=== PATIENT | female | born 1940 | race Caucasian/White ===

== ENCOUNTER → 2016-10-19 | Outpatient (CLI) | payer BC ==
[~2016-10-19] MED LIST: ACET-749 PO; CLTP PO; HYDC25 PO; METO50TA7 PO; NEPA0.6D OPR; OFLO0.3S4 OPL; POTA10CA28 PO; PRED1SUS3 OPR
== END | disposition home or self-care (01) ==
LOC: C.MAMM 10:57
PROVIDERS: ATTEND Obstetrics & Gynecology
DX: M85.80 Other specified disorders of bone density and structure, unspecified site (principal); Z78.0 Asymptomatic menopausal state

== ENCOUNTER → 2016-11-02 | Outpatient (CLI) | payer BC ==
--- NOTE | 2016-11-11 06:11 | CODING QUERY MEDICAL NECESSITY ---
SUPPORTING DIAGNOSIS NEEDED Dr. Faust, A supporting diagnosis is required for the test/procedure performed on this patient in order for us to be reimbursed by the patient's insurance. Please provide a supporting diagnosis for the following test/procedure listed below next to the test name along with your signature. *If there is no additional diagnosis for this patient that would support the following test/procedure please document that below next to the test/procedure. Test(s)/Procedure(s) that require a supporting diagnosis: * ([id number]) VITAMIN D ASSAY DIAGNOSIS: DATE OF SERVICE: 11/02/16 Provider Signature: Date: Thank you Eros Og [facility] Information Management Once completed, please kindly fax back to [phone] For questions please call [phone]
== END | disposition home or self-care (01) ==
LOC: C.LABFOXMH 09:10
PROVIDERS: ATTEND Obstetrics & Gynecology
DX: M85.80 Other specified disorders of bone density and structure, unspecified site (principal)

== ENCOUNTER → 2017-01-26 | Day surgery (SDC) | payer BC ==
[2017-01-17 15:36] VITALS: Ht 165.1 cm; Wt 70.5 kg
[~2017-01-26] VITALS: Ht 165.1 cm; Wt 70.5 kg
[~2017-01-26] MED LIST changes: +ACETAMINOPHEN/CODEINE 300/30MG TAB PO PRN; +ATROPINE SULFATE 0.1 MG/ML 5ML SYR IV PRN; +BUPIVACAINE 0.5 % 5 MG/1 ML PF 10ML VIAL ONE; +CEFAZOLIN 1000MG/55 ML D5W IV SCH; +EpHEDrine SULFATE INJ 50 MG/ML AMP IV PRN; +FENTANYL CITRATE INJ 50 MCG/1 ML 2 ML VIAL IV PRN; +FENTANYL CITRATE INJ 50 MCG/1 ML 2 ML VIAL ONE; +LACTATED RINGER'S 1000ML 1,000 ML IV SCH; +LIDOCAINE HCL 2% LOCAL 20 ML VIAL ONE; +MIDAZOLAM HCL 1 MG/ML 2ML VIAL ONE; -NEPA0.6D OPR; -OFLO0.3S4 OPL; +ONDANSETRON INJ 2 MG/ML 2 ML VIAL ONE; -PRED1SUS3 OPR; +SODIUM CHLORIDE 0.9% 1000ML 1,000 ML IV SCH
--- NOTE | 2017-01-26 10:23 | History & Physical Bridge - SC ---
H&P Re-Evaluation Bridge Note: I have examined the patient, reviewed the History & Physical and in the interval since the performance of the History & Physical I have noted the following changes of clinical significance: No changes noted
[2017-01-26 11:01] VITALS: TEMP 37
--- NOTE | 2017-01-26 11:02 | [facility] Post Operative Brief Note ---
Immediate Operative Summary Operative Date January 26, 2017. Pre-Operative Diagnosis Left Carpal Tunnel Sundrome; Left Index Trigger Finger Post-Operative Diagnosis same Procedure(s) Performed Left Carpal Tunnel Release; Left Index Trigger Finger Release Surgeon Dr. Andres Thomas Weatherization Technician Surgeon(s) Tyler Ugalde PA-C Estimated Blood Loss minimal Findings Left Carpal Tunnel Syndrome Left Index Trigger Finger Specimens none Anesthesia Local with IV Sedation Complication(s) None Disposition Recovery Room / PACU
--- NOTE | 2017-01-26 11:02 | Discharge Instructions-SurgCtr ---
Discharge Instructions Date of Service January 26, 2017. Visit Reason for Visit: Left Carpal Tunnel Syndrome, Left Index Trigger Discharge Discharge Diagnosis / Problem: left carpal tunnel syndrome, index trigger finger Discharge Goals Goal(s): Decrease discomfort, Improve function, Therapeutic intervention Activity Recommendations Activity Limitations: per Instructions/Follow-up section limited use of left hand Anesthesia . Post Anesthesia Instructions: If you have had General Anesthesia or IV Sedation: * Do not drive today. * Resume driving when surgeon permits. * Do not make important decisions or sign legal documents today. * Call surgeon for: 1. Temperature elevations greater than 101 degrees F. 2. Uncontrollable pain. 3. Excessive bleeding. 4. Persistent nausea and vomiting. 5. Medication intolerance (nausea, vomiting or rash). * For nausea and vomiting use only clear liquids such as: tea, soda, bouillon until nausea subsides, then gradually increase diet as tolerated. * If you have any concerns or questions, call your surgeon's office. If physician is unavailable and it is an emergency, call 911 or go to the nearest emergency room. . Instructions / Follow-Up Instructions / Follow-Up MEDICATIONS: * Resume previous medications unless instructed otherwise by your surgeon. * Always take pain medication on a full stomach or with food to avoid upset stomach. * Do not drink alcohol or drive while taking narcotics. * Ibuprofen or Tylenol may be taken if narcotic not needed. SPECIAL CARE INSTRUCTIONS: __ None __ Keep extremity elevated and iced x 48 hours; apply ice 20-30 minutes 8-10 times/day. May remove at night. __ Sling __24 hrs/day __ Remove at night __ Shoulder Immobilizer __ 24 hrs/day __ Remove at night _x_ Dressing _x_ Maintain until seen in office, may shower with plastic over site __ Remove dressings in 24-48 hours and then may shower __ Cover incisions with band-aids after showering __ Do not remove steri-strips Call physician if chills or temperature rises above 102 degrees or pain unrelieved by prescribed pain medications at . follow up in 2 weeks . Diet Recommendations Home Diet: resume previous diet Procedures Procedures Performed: Left Carpal Tunnel Release; Left Index Trigger Finger Release Pending Studies Studies pending at discharge: no Medical Emergencies . Who to Call and When: Medical Emergencies: If at any time you feel your situation is an emergency, please call 911 immediately. . Non-Emergent Contact Non-Emergency issues call your: Surgeon . . "Provider Documentation" section prepared by Huang Ugalde. .
[2017-01-26 11:33] VITALS: BP 130/72; PULSE 61; O2SAT 95
--- NOTE | 2017-01-26 11:47 | Anesthesia Progress Nt - [facility] ---
Anesthesia Post Op Note Date & Time January 26, 2017 at 11:47 Vital Signs Pain Intensity: 0 Vital Signs Past 12 Hours Date Time Temp Pulse Resp B/P Pulse Ox O2 Delivery O2 Flow Rate FiO2 01/26/17 11:33 61 16 130/72 95 Room Air 01/26/17 11:01 37.0 66 16 132/86 94 Room Air 01/26/17 09:27 36.4 70 16 150/85 98 Room Air Notes Mental Status: alert / awake / arousable, participated in evaluation Pt Amnestic to Procedure: Yes Nausea / Vomiting: adequately controlled Pain: adequately controlled Airway Patency, RR, SpO2: stable & adequate BP & HR: stable & adequate Hydration State: stable & adequate Anesthetic Complications: no major complications apparent
--- NOTE | 2017-01-26 16:45 | OPERATIVE REPORT ---
DATE OF OPERATION: 01/26/2017 PREOPERATIVE DIAGNOSES: 1. Left carpal tunnel syndrome. 2. Left index finger trigger finger. POSTOPERATIVE DIAGNOSIS: Same. PROCEDURE PERFORMED: 1. Left carpal tunnel release. 2. Left index finger trigger finger release. SURGEON: Dr. Edwin Thomas. COMPLICATIONS: None. ESTIMATED BLOOD LOSS: Minimal. TOURNIQUET TIME: 8 minutes at 250 mmHg. OPERATIVE INDICATIONS: The patient is a 76-year-old female with a fairly complex past medical history with a pretty significant cervical spine surgery in the past. Over the past several years she has developed numbness and tingling in the median nerve distribution. She had failed conservative treatment and nerve studies revealed carpal tunnel syndrome. She elected to proceed with carpal tunnel release. There are no signs on nerve testing of residual cervical radiculopathy. The patient has also had triggering or locking of her index finger. She did respond temporarily to injection, but her symptoms appeared to be returning and she would like to have a trigger finger release as well. OPERATION AND FINDINGS: OPERATIVE PROCEDURE: The patient taken to the operating room, identified and placed on the operating table in supine position. All contact areas were appropriately padded. IV antibiotics were provided by anesthesia team. A left forearm tourniquet was placed. Some IV sedation was provided. Ten mL of a 50:50 combination of 0.5% Marcaine and 2% lidocaine were then injected in and around the proposed incision sites of the left palm and the left index finger. The left hand was then prepped and draped in the usual sterile fashion. The arm was elevated and exsanguinated with Esmarch and tourniquet was placed at 250 mmHg. Attention was first drawn to the trigger finger. A transverse incision was made at the base of the index finger just proximal to the distal palmar crease. Blunt dissection was carried down through the subcutaneous tissue directly down to the flexor tendon sheath. The A1 jesu was identified and transected with the use of scissors. It was bluntly spread. The finger was taken through an active and active assisted range of motion and there was no further catching or locking. Attention was then drawn to the carpal tunnel release. A 2.5 cm incision was made in the palm just ulnar to the palmaris longus tendon. Blunt dissection was carried out through the subcutaneous tissues down to the level of the palmar fascia. The palmar fascia was incised longitudinally in line with skin incision. The underlying transverse carpal ligament was identified. It was transected distally with use of a Glascock blade knife and then bluntly spread. Attention was then drawn proximally. Blunt dissection was carried out above and below the ligament proximally. The ligament was transected for a minimum distance of 3 cm proximal to the wrist flexion crease. The ligament was bluntly spread and found to be completely released. The wound was irrigated with copious amounts of normal saline. The tourniquet was then let down for a total tourniquet time 8 minutes. I applied pressure to both wounds for several minutes. I then irrigated both wounds and then the skin of both wounds were then closed with 5-0 nylon suture in a horizontal mattress fashion. The hand was then cleaned and dried and a sterile dressing with Xeroform, 4 x 4, sterile cast padding and Lane bandage were applied. The patient then transferred to the recovery room in stable condition. The patient tolerated the procedure well with no complications. All needle and sponge counts were correct at the end of the operation. I attest to the content of the Intraoperative Record and any orders documented therein. Any exceptions are noted below. REESE
== END | disposition home or self-care (01) ==
LOC: X.SURG 09:13
PROVIDERS: ATTEND Orthopaedic Surgery Sports Medicine
DX: G56.02 Carpal tunnel syndrome, left upper limb (principal); M65.322 Trigger finger, left index finger; I10 Essential (primary) hypertension

== ENCOUNTER → 2017-03-23 | Outpatient (CLI) | payer BC ==
[~2017-03-23] MED LIST changes: -ACETAMINOPHEN/CODEINE 300/30MG TAB PO PRN; -ATROPINE SULFATE 0.1 MG/ML 5ML SYR IV PRN; -BUPIVACAINE 0.5 % 5 MG/1 ML PF 10ML VIAL ONE; -CEFAZOLIN 1000MG/55 ML D5W IV SCH; -EpHEDrine SULFATE INJ 50 MG/ML AMP IV PRN; -FENTANYL CITRATE INJ 50 MCG/1 ML 2 ML VIAL IV PRN; -FENTANYL CITRATE INJ 50 MCG/1 ML 2 ML VIAL ONE; -LACTATED RINGER'S 1000ML 1,000 ML IV SCH; -LIDOCAINE HCL 2% LOCAL 20 ML VIAL ONE; -MIDAZOLAM HCL 1 MG/ML 2ML VIAL ONE; -ONDANSETRON INJ 2 MG/ML 2 ML VIAL ONE; -SODIUM CHLORIDE 0.9% 1000ML 1,000 ML IV SCH
[2017-03-23 11:04] LABS: BLOOD UREA NITROGEN 14 mg/dl (7-18); BUN/CREATININE RATIO 16.1 (10-20); CARBON DIOXIDE 31 mmol/L (21-32); CHLORIDE 104 mmol/L (98-107); CREATININE 0.85 mg/dl (0.60-1.20); GLUCOSE 101 mg/dl (70-99); POTASSIUM 3.6 mmol/L (3.5-5.1); SODIUM 141 mmol/L (136-145)
== END | disposition home or self-care (01) ==
LOC: C.LABFOXMH 09:39
PROVIDERS: ATTEND Internal Medicine
DX: I10 Essential (primary) hypertension (principal)

== ENCOUNTER → 2017-03-24 | Outpatient (CLI) | payer BC ==
--- NOTE | 2017-03-24 11:39 | DIAGNOSTIC IMAGING REPORT ---
CHEST 2 VIEWS ROUTINE CLINICAL HISTORY: COUGH dyspnea COMPARISON STUDY: 09/07/2013 FINDINGS: The bones soft tissues and hemidiaphragms are normal. The cardiomediastinal silhouette is normal. The lungs are clear. The pulmonary vasculature is normal. IMPRESSION: Negative chest. Electronically signed by: Royal Tuttle M.D. 03/24/2017 11:38 AM Dictated Date/Time: 03/24/2017 11:38 AM
== END | disposition home or self-care (01) ==
LOC: C.RC 11:06
PROVIDERS: ATTEND Internal Medicine
DX: R05 Cough (principal); R06.00 Dyspnea, unspecified

== ENCOUNTER → 2017-05-09 | Outpatient (CLI) | payer BC ==
--- NOTE | 2017-05-10 06:01 | PAP/PSG TECHNICIAN REPORT ---
[facility] Dowel Machine Operator Polysomnogram Report Study name: None Report date: 05/10/2017 Study date: 05/09/2017 Referring Physician: KADY WHITNEY M.D. Name: NKECHI ESCOBEDO Interpreting Physician: Atif Robert M.D. Date of : 1940 Dowel Machine Operator: Radha Webb RPSGT. Sex: Female Age: 76 Study Type: PSG PAP Weight: 165 lbs Height: 76 years, Height 5' 4.5" BMI: 27.88 Medications: METOPROLOL 50 MG, HYDROCHLOROTHIAZIDE 25 MG, POTASSIUM 10 MEQ, CALCIUM + VIT D3 600/800 MG Patient History 76 yr-old female here for a CPAP update study. She has recently been experiencing more daytime sleepiness. She is back to assess her pressure settings. She wears a Conway FX nasal pillows size small from [employer] ([employer]). The test was started on room air and 4 CMH2O. ETCO2 testing was not utilized during this study. Room 1 Parameters Monitored NPSG: E1-M2, E2-M1, Fp1-M2, Fp2-M1, F3-M2, F4-M2, F4-M1, C3-M2, C4-M2, C4-M1, O1-M2, O2-M2, O2-M1, T3-M2, T4-M1, P3-M2, P4-M1, CHIN1, CHIN2, HR, EKG, Legs, PFLOW, SNOR, FLOW, CFLOW, Tidal Volume, THOR, ABDO, SpO2, PLTH, CPRESS, ETCO2 Wave, ETCO2, pH Sleep Architecture Sleep Stages Time at Lights Off 10:01:00 PM STAGES Time (min.) TST (%) Time at Lights On 5:30:30 AM Wake 46.5 -- Total Recording Time (TRT) 449.50 min. N1 25.5 6 Total Sleep Period (TSP) 444.5 min. N2 248.0 62 Total Sleep Time (TST) 403.0min. N3 37.5 9 Awake Time 46.5 min. REM 92.0 23 Wake after Sleep Onset 42.0 min. Sleep Efficiency (SE) 90 % Sleep Onset Latency (CARLOS MANUEL) 4.5 min. Number of Stage 1 Shifts None Awakenings 15 Stage Changes 88 Number of REM periods 5 REM 92.0 23 REM Latency 77.5 min. NREM 311.0 77 Body Position Analysis Supine Right Left Side Prone Vertical Total Sleep Time (min.) 0.0 403.0 0.0 403.00 0.0 0.0 Total Sleep Time (%) 0% 100% 0% 100 0% N/A% Total Sleep Time REM (min.) 0.0 92.0 0.0 None 0.0 0.0 Total Sleep Time NREM (min.) 0.0 311.0 0.0 None 0.0 0.0 Intermittent Wake (min.) 0.0 46.5 0.0 None 0.0 0.0 Total Sleep Period (%) 0% None None None None None Arousals Myoclonus (PLM) * Events Count Index Events Count Index Spontaneous 17 3 Events Awake (PLMW) 51 65.8 Respiratory 2 0.3 Events Asleep w/ Arousal (PLMA) 22 3.3 PLM 22 3 Events Asleep w/o Arousal (PLMS) 505 75.2 Snoring 2 0 Total Asleep 527 78.5 Total 43 6 Total 578 77 Respiratory Analysis * CA OA MA CH H RERA Total Count 0 0 0 0 4 2 4 Index 0.0 0.0 0.0 0 0.6 0 0.9 Mean Duration 0.0 0.0 0.0 0.00 17.2 17.0 17.1 Longest Duration 0.0 0.0 0.0 0.00 0.0 17.1 24.9 Respiratory Event Summary Total Supine ~Supine Right Left Prone REM NREM Apneas Count 0 N/A 0 0 N/A N/A 0 0 Index 0.0 N/A 0 0.0 N/A N/A 0 0 Hypopneas (4% Desat) Count 4 N/A 4 4 N/A N/A 0 4 Index 0.6 N/A 1 0.6 N/A N/A 0.0 0.8 Apneas & All Hypopneas Count 4 N/A 4 4 N/A N/A 0 4 Index 0.6 N/A 1 1 N/A N/A 0.0 0.8 Respiratory Events (Service Learning Coordinator+All Hyp+RERA) Count 4 N/A 6 6 N/A N/A 0 4 Index 0.9 N/A 1 0.9 N/A N/A 0.7 1.0 Respiratory Related Arousal Count 2 N/A 2 2 N/A N/A 1 1 Index 0.3 N/A 0 0 N/A N/A 1 0 Snoring Analysis Supine Right Left Prone REM NREM Total Snore duration 3.6 min Snores count N/A 127 N/A N/A 15 112 127 Snore mean duration 1.7 Sec Snores index N/A 19 N/A N/A 9.8 21.6 18.9 TST with snoring (%) 0.9% Time (mins) REM (mins) NREM (mins) % of TST SpO2 Below 90% 8 N/A N8 1.1 SpO2 Below 88% 0 0 0 0 Heart Rate Analysis Min (bpm) Max (bpm) Average (bpm) Awake 59 82 66 NREM 57 79 61 REM 57 80 61 Overall 57 80 61 Supplemental O2 Values Minimum O2 level: None Value Start Time End Time Dowel Machine Operator Comments Ms. Escobedo slept only in the right-side position. No cardiac arrhythmias were noted. PLMs were noted throughout the study. No bruxism noted. CPAP was initiated at +4 CMH2O and up-titrated to a level of +5 CMH2O, Cflex 2 which nearly eliminated all respiratory events and snoring. A Conway FX nasal pillows size small from [employer] ([employer]) was used during titration. She did not wake up to use the restroom during the night. Ms. Escobedo stated that she slept about the same as usual. The final report will be interpreted and signed by a sleep physician. The completed physician report will then be placed in the patient medical record.
--- NOTE | 2017-05-11 16:16 | POLYSOMNOGRAPH REPORT ---
CLINICAL DATA: A 76-year-old female with BMI of 27.88 for an updated CPAP study. She is on CPAP but has been having more daytime sleepiness. She is referred by Dr. Marina. SLEEP ARCHITECTURE: Total recording time was 449.5 minutes. Total sleep period was 444.5 minutes. Total sleep time was 403 minutes divided between 311 minutes of non-REM sleep and 92 minutes of REM sleep. Sleep onset latency was 4.5 minutes. REM latency was 77.5 minutes. Sleep efficiency was 90%. Wake after sleep onset was 42 minutes. Sleep consisted of stage N1 6%, stage N2 62%, stage N3 9%, and REM 23%. AROUSAL DATA: Forty-three arousals recorded for an index of 6 per hour. PLM DATA: Severe PLMD was noted. There were 527 limb movements during sleep noted for an index of 78.5 per hour with an arousal index of 3.3 per hour. RESPIRATORY DATA: The AHI was 0.6. There were 4 hypopneic episodes with a mean duration of 17.2 seconds. OXIMETRY DATA: No hypoxemia was seen. The oxygen abraham was 88%. Mean saturation was 92%. EKG: Heart rates ranged from 57 to 80 beats per minute. No arrhythmias were noted. RANCH MANAGER'S COMMENTS AND TREATMENT SUMMARY: The patient slept in the right side. She used a Conway FX nasal pillow size small from [employer]. She was titrated up to 5 cm of water pressure. At that pressure setting, she slept for 135 minutes with an AHI of 0.4. She did have frequent limb movements during the night with arousals consistent with PLMD. IMPRESSION: 1. Sleep apnea corrected with CPAP 5 cm water pressure, C-Flex setting 2 with a Conway FX nasal pillow size small from [employer]. 2. Severe periodic limb movement disorder. RECOMMENDATIONS: The patient should be continued on CPAP 5 cm of water pressure, C-Flex 2 with a Conway FX nasal pillow size small from [employer]. Treatment for an evaluation for PLMD/restless leg syndrome may be of benefit. Clinical correlation is needed. MTDD
== END | disposition home or self-care (01) ==
LOC: C.NEUR 20:00
PROVIDERS: ATTEND Internal Medicine
DX: R53.83 Other fatigue (principal); G47.30 Sleep apnea, unspecified

== ENCOUNTER → 2017-08-26 | Outpatient (CLI) | payer BC ==
[~2017-08-26] MED LIST changes: -ACET-749 PO
[2017-08-26 08:28] LABS: BLOOD UREA NITROGEN 10 mg/dl (7-18); BUN/CREATININE RATIO 12.5 (10-20); CALCIUM 9.4 mg/dl (8.5-10.1); CARBON DIOXIDE 30 mmol/L (21-32); CHLORIDE 103 mmol/L (98-107); CREATININE 0.83 mg/dl (0.60-1.20); GLUCOSE 101 mg/dl (70-99); POTASSIUM 3.9 mmol/L (3.5-5.1); SODIUM 142 mmol/L (136-145)
== END | disposition home or self-care (01) ==
LOC: C.LABFOXMH 08:02
PROVIDERS: ATTEND Internal Medicine
DX: I10 Essential (primary) hypertension (principal)

== ENCOUNTER → 2017-09-28 | Outpatient (CLI) | payer BC ==
[~2017-09-28] MED LIST changes: -METO50TA7 PO; +METO50TA8 PO
--- NOTE | 2017-09-28 11:54 | DIAGNOSTIC IMAGING REPORT ---
MRI CERVICAL WITHOUT CONTRAST CLINICAL HISTORY: Left arm and hand radiculopathy. History of spinal fusion in 2011. TECHNIQUE: Sagittal and axial T1, T2 and STIR images were obtained. COMPARISON STUDY: October 2011 There are no suspicious areas of marrow replacement. No intrinsic cervical cord lesions are visualized. There are postsurgical changes of discectomies and interbody fusions at the C3-4, C4-5, and C5-6 levels. There is an anterior fusion extending from the C3-C6 level. C2-3: There is no evidence of disc bulge or focal herniation. There is no spinal or foraminal stenosis. C3-4: Postsurgical changes are evident. There is no evidence of disc herniation. There is no significant spinal stenosis. There is bilateral foraminal narrowing more severe on the left C4-5: Postsurgical changes are evident. No disc herniation is visualized. There is no significant spinal stenosis. There is mild left-sided foraminal narrowing. C5-6 :Postsurgical changes are evident. There is mild spinal stenosis. There is no recurrent disc herniation. There is bilateral foraminal stenosis. C6-7: There is a minor circumferential disc bulge. There is mild spinal stenosis. There is bilateral foraminal narrowing. C7-T1: There is a small left paracentral disc protrusion. There is no significant spinal or foraminal stenosis. IMPRESSION: 1. Interval surgery with a C3-C6 anterior spinal fusion 2. Multilevel foraminal stenosis, most severe at the C3-4 level on the left 3. Minor spinal stenosis at the C5-6 and C6-7 levels 4. Very small left central paracentral protrusion at the C7-T1 level Electronically signed by: Ervin Chaudhari M.D. 09/28/2017 11:52 AM Dictated Date/Time: 09/28/2017 11:45 AM
== END | disposition home or self-care (01) ==
LOC: C.MRIBC 10:23
PROVIDERS: ATTEND Internal Medicine Hospice and Palliative Medicine
DX: M54.12 Radiculopathy, cervical region (principal)

== ENCOUNTER → 2017-10-10 | Outpatient (CLI) | payer BC ==
[~2017-10-10] MED LIST changes: +METO50TA7 PO; -METO50TA8 PO
[2017-10-10 09:33] LABS: HEMATOCRIT 41.8 % (37-47); HEMOGLOBIN 14.7 g/dL (12.0-16.0); MEAN CELL VOLUME 93.3 fL (80-100); MEAN CORPUSCULAR HEMOGLOBIN 32.8 pg (25-34); MEAN CORPUSCULAR HGB CONC 35.2 g/dl (32-36); MEAN PLATELET VOLUME 11.1 fL (7.4-10.4); PLATELET COUNT 205 K/uL (130-400); RED CELL DISTRIBUTION WIDTH CV 13.2 % (11.5-14.5); RED CELL DISTRIBUTION WIDTH SD 44.9 fL (36.4-46.3); WHITE BLOOD COUNT 6.67 K/uL (4.8-10.8)
[2017-10-10 09:42] LABS: ALBUMIN 3.5 gm/dl (3.4-5.0); ALT/SGPT 34 U/L (12-78); BLOOD UREA NITROGEN 12 mg/dl (7-18); CALCIUM 9.1 mg/dl (8.5-10.1); CARBON DIOXIDE 30 mmol/L (21-32); CREATININE 0.76 mg/dl (0.60-1.20); GLUCOSE 102 mg/dl (70-99); POTASSIUM 3.6 mmol/L (3.5-5.1); SODIUM 139 mmol/L (136-145)
[2017-10-10 09:52] LABS: ALKALINE PHOSPHATASE 94 U/L (45-117); AST/SGOT 25 U/L (15-37); TOTAL PROTEIN 6.6 gm/dl (6.4-8.2)
== END | disposition home or self-care (01) ==
LOC: C.LABFOXMH 08:42
PROVIDERS: ATTEND Internal Medicine
DX: R53.83 Other fatigue (principal)

== ENCOUNTER → 2017-11-08 | Outpatient (CLI) | payer BC ==
[~2017-11-08] MED LIST changes: -METO50TA7 PO; +METO50TA8 PO
--- NOTE | 2017-11-09 15:22 | MAMMOGRAPHY REPORT ---
BILATERAL DIGITAL SCREENING MAMMOGRAM TOMOSYNTHESIS WITH CAD: 11/08/2017 CLINICAL HISTORY: Routine screening. Patient has no complaints. TECHNIQUE: Breast tomosynthesis in addition to standard 2D mammography was performed. Current study was also evaluated with a Computer Aided Detection (CAD) system. COMPARISON: Comparison is made to exams dated: 08/27/2016 mammogram, 08/26/2015 mammogram, 08/20/2014 mammogram, 08/13/2013 mammogram, 07/31/2012 mammogram, and 09/22/2011 aspiration - [facility]. BREAST COMPOSITION: The tissue of both breasts is extremely dense, which lowers the sensitivity of m ammography. FINDINGS: The glandular pattern is similar to prior mammograms, with stable asymmetries bilaterally. There are stable metallic markers in the 12:00 far posterior right breast and numerous/diffuse group ings of punctate and coarse heterogeneous calcifications in the breasts, which appear relatively stab le compared to prior mammograms. There are also mild to moderate vascular calcifications in the branden sts. No obvious new mass, architectural distortion or cluster of new, suspicious microcalcifications is seen. IMPRESSION: ACR BI-RADS CATEGORY 1: NEGATIVE There is no mammographic evidence of malignancy. A 1 year screening mammogram is recommended. The pa tient will receive written notification of the results. Approximately 10% of breast cancers are not detected with mammography. A negative mammographic report should not delay biopsy if a clinically suggestive mass is present. Rula Vasquez M.D. ay/:11/08/2017 16:26:50 Deicer Inspector Pneumatic: Catrina Paris, [facility] letter sent: Normal 1/2 BI-RADS Code: ACR BI-RADS Category 1: Negative
== END | disposition home or self-care (01) ==
LOC: C.MAMM 07:23
PROVIDERS: ATTEND Obstetrics & Gynecology
DX: Z12.31 Encounter for screening mammogram for malignant neoplasm of breast (principal)

== ENCOUNTER 2024-01-03 13:12 | Observation (INO) ==
--- NOTE | 2024-01-03 13:25 | ED Triage Note ---
Date of Service January 03, 2024 Provider in Triage Author: Conrad Cole History of Present Illness This patient was briefly evaluated while in triage. An abbreviated physical exam was performed. This patient is a 83-year-old Female who presents to the ED for evaluation of new onset atrial fibrillation, and was referred to the emergency department by Dr. Marina. The patient noticed an increased heart rate yesterday. The patient denies any other significant symptoms, including chest pain, shortness of breath or lightheadedness. The patient reports that she was slightly lightheaded when she got off of the examination table at Dr. Marina's office. The patient does report a history of hypertension. Physical Exam CONSTITUTIONAL: Healthy and well nourished. Alert and oriented X 3. HEENT: Normocephalic, atraumatic. Pupils equal, round and reactive. NECK: Full active range of motion without discomfort. LYMPHATICS: No cervical chain adenopathy. RESPIRATORY: Clear to auscultation bilaterally with no wheezing, crackles, rhonchi or stridor. CARDIOVASCULAR: Tachycardic and irregular rhythm with no murmurs, rubs or gallops. MUSCULOSKELETAL: Full range of motion of all joints without discomfort. INTEGUMENTARY: No rash or other significant dermatologic conditions noted. HEMATOLOGIC: No ecchymosis or petechiae. PSYCHIATRIC: Positive affect. NEUROLOGIC: No focal neurologic deficits noted. Initial orders for labs and / or imaging were placed and patient was placed in the waiting area until a bed is available. Please see further documentation for the full ED course.
[2024-01-03] MEDS: METOPROLOL TARTRATE 1 MG/ML VIAL IV STA ×3 (14:11→16:00)
--- NOTE | 2024-01-03 14:13 | Emergency Department Note ---
Impression & Plan Atrial fibrillation with RVR, Cardiomegaly ED Provider Note NAME: NKECHI WATT AGE: 83 SEX: F : 1940 ARRIVES VIA: Walk-In INFORMANT: Patient, ED PROVIDER(S): Stephon Hernandez MD CHIEF COMPLAINT: Tachycardia HPI: This is an 83-year-old female presenting for tachycardia. Patient states that she started on new blood pressure medication recently, amlodipine, and has been tracking her blood pressures regularly. She notes that her blood pressure has been fairly normal however over the past 1 to 2 days her pulse rate was not able to be detected in her blood pressure monitor. She notes she takes no blood thinners. Does not know exactly when her heart rate started going fast. She feels no palpitations, chest pain, shortness of breath, fever, chills, nausea, vomiting, fatigue. Patient does note she feels "off ". She has otherwise she never had any abnormal heart rhythms. Previously. ROS: See above HPI for pertinent positives & negatives. A total of 10 systems reviewed and were otherwise negative. PHYSICAL EXAMINATION: General: resting comfortably in no acute distress Head: Normocephalic and atraumatic Eyes: Normal inspection, extraocular muscles intact Ear, nose, throat: Normal external exam Neck: Normal range of motion Respiratory: lungs clear to auscultation bilaterally Cardiovascular: Irregularly irregular rate/rhythm, no murmur GI: soft, nontender, no guarding or rebound Extremities: nontender, moves all extremities Neuro: The patient awake and alert, appropriately conversive, no focal deficits, symmetric faces Skin: Warm, dry, and intact MEDICAL DECISION MAKING: This is an 83-year-old female presenting for tachycardia. Patient has a fairly normal blood pressure 120s over 90s. She is in atrial fibrillation rhythm. -Patient on metoprolol 50 XL daily as well as her blood pressure medications. Will give her metoprolol at this time in order to help rate control her. -Patient given 3X 5 mg doses of metoprolol in total. She is still in A-fib with RVR. Currently rate controlled. Not hypotensive likely. At this point patient has had new onset A-fib, is anticoagulated and will require admission for further rate controlling methods as well as anticoagulation. Patient is comfortable with this plan. -Labs reviewed without significant abnormalities aside from a slight hypokalemia which we will replete at this time. No UTI noted on urinalysis. -Chest x-ray as independently interpreted by me does reveal cardiomegaly with slight pulmonary vascular congestion, no pleural effusions, opacities or pneumothorax are noted. -Discussed care with manage the hospitalist team who excepts the patient to their service. Differential diagnosis: A-fib, ACS ER treatment provided: See below Diagnostics interpreted by me: ECG: ECG independently interpreted by me with atrial fibrillation with RVR, rate of 150, normal axis, normal QRS, normal QTc, no ST segment elevations consistent with STEMI criteria, slight ST depressions on lateral leads Cardiac Monitoring: An order was placed for continuous cardiac monitoring. The monitor shows a rate of 135 with atrial fibrillation rhythm. Laboratory studies: As stated above and show below. Imaging studies: See below. Past Med/Surg History Medical History Left trigger finger Left carpal tunnel syndrome Effusion, left knee Left knee DJD Surgical History History of rectal polypectomy Status post trigger finger release History of neck surgery History of colonoscopy History of section History of cataract surgery History of carpal tunnel surgery Family History Aunt Breast cancer Mother Colorectal cancer Hypertension Denies family history of Ovarian cancer Stroke Asthma Social History Smoking Status: Never smoker Hx Alcohol Use: Yes Hx Substance Use: No Preferred Language: Andorran marital status: current occupational status: retired Feels Safe at Home: Yes Childhood Exposure to Second-Hand Smoke: No Allergies Allergies Allergy/AdvReac Type Severity Reaction Status Date / Time latex Allergy Unknown LATEX Verified 09/14/23 15:54 BANDAGES - RASH/REDDENED. bacitracin Allergy Verified 09/14/23 15:54 [From Neosporin ([id number])] neomycin Allergy Verified 09/14/23 15:54 [From Neosporin ([id number])] polymyxin B Allergy Verified 09/14/23 15:54 [From Neosporin ([id number])] Home Meds Home Medications Medication Instructions Recorded Confirmed mecobalamin (vitamin B12) 1,000 1,000 mcg sublingual DAILY 05/10/19 01/03/24 mcg disintegrating tablet,sublingual amlodipine 5 mg tablet 5 mg PO DAILY 01/03/24 01/03/24 candesartan 16 mg tablet 16 mg PO DAILY 01/03/24 01/03/24 cholecalciferol (vitamin D3) 50 50 mcg PO DAILY 01/03/24 01/03/24 mcg (2,000 unit) tablet (Vitamin D3) hydrochlorothiazide 25 mg tablet 25 mg PO DAILY 01/03/24 01/03/24 metoprolol succinate 50 mg 50 mg PO DAILY 01/03/24 01/03/24 tablet,extended release 24 hr potassium chloride 10 mEq 20 meq PO DAILY 01/03/24 01/03/24 tablet,extended release vit C 250 mg-vit E 90 mg-zinc 40 1 tab PO BID 01/03/24 01/03/24 mg-copper 1 [id number] capsule (PreserVision AREDS-2) Results & Data (ED) Vital Signs Vital Signs - 24 hr 01/03/24 13:13 01/03/24 13:13 01/03/24 13:45 Temperature 36.8 C Temperature Source Temporal Artery Scan Pulse Rate 150 H 157 H Pulse Rate from SpO2 Sensor Pulse Rhythm Respiratory Rate 18 18 20 Blood Pressure 149/84 H Blood Pressure Mean 105 Pulse Oximetry 97 Oxygen Delivery Method Sepsis Recent Fever Within 48 Hours No Sepsis New/Unexplained Change in Mental Status N/A Sepsis Action Taken by Nursing No Action Required 01/03/24 13:48 01/03/24 13:48 01/03/24 14:00 Temperature Temperature Source Pulse Rate 144 H 142 H Pulse Rate from SpO2 Sensor Pulse Rhythm Respiratory Rate 27 H 21 Blood Pressure 123/91 Blood Pressure Mean 104 Pulse Oximetry Oxygen Delivery Method Sepsis Recent Fever Within 48 Hours Sepsis New/Unexplained Change in Mental Status Sepsis Action Taken by Nursing 01/03/24 14:05 01/03/24 14:11 01/03/24 14:15 Temperature Temperature Source Pulse Rate 150 H 143 H 135 H Pulse Rate from SpO2 Sensor 140 H Pulse Rhythm Irregular Respiratory Rate 18 19 Blood Pressure 123/91 Blood Pressure Mean Pulse Oximetry 97 97 Oxygen Delivery Method Room Air Sepsis Recent Fever Within 48 Hours Sepsis New/Unexplained Change in Mental Status Sepsis Action Taken by Nursing 01/03/24 14:17 01/03/24 14:17 01/03/24 14:26 Temperature Temperature Source Pulse Rate 139 H 158 H Pulse Rate from SpO2 Sensor 141 H Pulse Rhythm Respiratory Rate 12 Blood Pressure 124/84 Blood Pressure Mean 104 Pulse Oximetry 94 Oxygen Delivery Method Sepsis Recent Fever Within 48 Hours Sepsis New/Unexplained Change in Mental Status Sepsis Action Taken by Nursing 01/03/24 14:30 01/03/24 14:30 01/03/24 14:39 Temperature Temperature Source Pulse Rate 131 H 131 H Pulse Rate from SpO2 Sensor 133 H Pulse Rhythm Respiratory Rate 18 Blood Pressure 122/90 122/90 Blood Pressure Mean 98 Pulse Oximetry 92 Oxygen Delivery Method Sepsis Recent Fever Within 48 Hours Sepsis New/Unexplained Change in Mental Status Sepsis Action Taken by Nursing 01/03/24 15:00 01/03/24 16:00 Temperature Temperature Source Pulse Rate 124 H 126 H Pulse Rate from SpO2 Sensor 125 H Pulse Rhythm Respiratory Rate 17 Blood Pressure 129/94 134/99 Blood Pressure Mean 105 Pulse Oximetry 92 Oxygen Delivery Method Sepsis Recent Fever Within 48 Hours Sepsis New/Unexplained Change in Mental Status Sepsis Action Taken by Nursing Laboratory Data 01/03/24 14:00 01/03/24 14:00 Lab Results 01/03/24 01/03/24 Range/Units 13:45 14:00 WBC 8.51 (4.8-10.8) K/ul RBC 4.22 (4.20-5.40) M/uL Hgb 13.7 (12.0-16.0) g/dl Hct 38.8 (37.0-47.0) % MCV 91.9 (80.0-100.0) fL MCH 32.5 (25.0-34.0) pg MCHC 35.3 (32.0-36.0) g/dL RDW Std Deviation 41.4 (36.4-46.3) fL RDW Coeff of [place]elia 12.4 (11.5-14.5) % Plt Count 207 (130-400) K/uL MPV 10.5 (9.4-12.4) fL Immature Gran % (Auto) 0.4 % Neut % (Auto) 68.8 % Lymph % (Auto) 17.5 % Whitman % (Auto) 11.4 % Eos % (Auto) 1.5 % Baso % (Auto) 0.4 % Neut # (Auto) 5.86 (1.40-6.50) K/uL Lymph # (Auto) 1.49 (1.20-3.40) K/uL Whitman # (Auto) 0.97 H (0.11-0.59) K/uL Eos # (Auto) 0.13 (0.00-0.50) K/uL Baso # (Auto) 0.03 (0.00-0.20) K/uL Immature Gran # (Auto) 0.03 (0.01-0.20) K/uL PT 10.7 (9.0-12.0) Seconds INR 1.0 (0.9-1.1) APTT 27 (21-31) Seconds PTT Ratio 1.0 Sodium 136 (136-145) mmol/L Potassium 3.1 L (3.5-5.1) mmol/L Chloride 100 (98-107) mmol/L Carbon Dioxide 27 (21-32) mmol/L Anion Gap 9 (3-11) BUN 12 (6-23) mg/dl Creatinine 0.71 (0.6-1.2) mg/dl Est Cr Clr Drug Dosing 59.4 ml/min Est GFR ( Amer) 90.0 ml/min Est GFR (Non-Af Amer) 77.7 ml/min BUN/Creatinine Ratio 16.9 (10-20) Glucose 100 H (70-99(Fasting)) mg/dl Calcium 9.5 (8.6-10.3) mg/dl Magnesium 2.0 (1.7-2.4) mg/dl Total Bilirubin 0.6 (0.2-1.0) mg/dl AST 16 (13-39) U/L ALT 12 (7-52) U/L Alkaline Phosphatase 93 (34-104) U/L Troponin I High Sens 3.6 (0-14) pg/ml Total Protein 6.7 (6.0-8.3) gm/dl Albumin 4.3 (3.4-5.0) gm/dl Globulin 2.4 L (2.5-4.0) gm/dl Albumin/Globulin Ratio 1.8 (0.9-2) TSH 2.206 (0.300-4.500) uIu/ml Urine Color Yellow Urine Appearance Clear (Clear) Urine pH 6.0 (4.5-7.5) Ur Specific [place] 1.011 (1.000-1.030) Urine Protein Negative (Negative) Urine Glucose (UA) Negative (Negative) Urine Ketones Negative (Negative) Urine Blood Negative (Negative) Urine Nitrite Negative (Negative) Urine Bilirubin Negative (Negative) Urine Urobilinogen Negative (Negative) Ur Leukocyte Esterase Negative (Negative) Administered Medications Losartan Potassium (Losartan Potassium 50 Mg Tab) 50 mg PO SHERLYN Stop: 02/02/24 20:59 Last Admin: 01/03/24 20:53 Dose: 50 mg Documented By: NICK Metoprolol Succinate (Metoprolol Succ 50mg Ext Rel Tab) 100 mg PO BID SHERLYN Stop: 02/02/24 20:59 Last Admin: 01/03/24 20:56 Dose: 100 mg Documented By: NICK Discontinued Medications Apixaban (Apixaban 5 Mg Tablet) 5 mg PO NOW STA Stop: 01/03/24 16:56 Last Admin: 01/03/24 17:44 Dose: 5 mg Documented By: ROBIN Furosemide (Furosemide Inj 20 Mg/2 Ml Vial) 20 mg IV ONE ONE Stop: 01/03/24 19:37 Last Admin: 01/03/24 20:53 Dose: 20 mg Documented By: NICK Metoprolol Succinate (Metoprolol Succ 50mg Ext Rel Tab) 50 mg PO NOW STA Stop: 01/03/24 16:55 Last Admin: 01/03/24 17:44 Dose: 50 mg Documented By: ROBIN Metoprolol Tartrate (Metoprolol Tartrate 1 Mg/Ml Vial) 5 mg IV NOW STA Stop: 01/03/24 13:56 Last Admin: 01/03/24 14:11 Dose: 5 mg Documented By: FADUMO Metoprolol Tartrate (Metoprolol Tartrate 1 Mg/Ml Vial) 5 mg IV NOW STA Stop: 01/03/24 14:37 Last Admin: 01/03/24 14:39 Dose: 5 mg Documented By: JOSE Metoprolol Tartrate (Metoprolol Tartrate 1 Mg/Ml Vial) 5 mg IV NOW STA Stop: 01/03/24 15:31 Last Admin: 01/03/24 16:00 Dose: 5 mg Documented By: ROIBN Potassium Chloride (Potassium Chloride Crtab 20 Meq Tabcr) 40 meq PO NOW STA Stop: 01/03/24 15:31 Last Admin: 01/03/24 16:01 Dose: 40 meq Documented By: ROBIN Potassium Chloride (Potassium Chloride Crtab 20 Meq Tabcr) 40 meq PO NOW STA Stop: 01/03/24 19:37 Last Admin: 01/03/24 20:53 Dose: 40 meq Documented By: INJECTION MOLDING MACHINE OPERATOR Imaging Data Radiologist's Impression: Chest X-Ray 01/03/24 13:25 XR chest 1V portable CLINICAL HISTORY: Chest pain, nonspecific TECHNIQUE: Single frontal radiograph of the chest was obtained. Comparison: Comparison is made to chest radiograph 12/03/2011 FINDINGS: No lines and tubes are seen. Cardiomegaly is noted. Prominence and cephalization of the vasculature is seen. No evidence of pleural effusion or pneumothorax. ACDF is seen. IMPRESSION: Cardiomegaly and mild pulmonary edema. ACT 112: Negative or not required by law. Electronically signed by: Leodan Dempsey M.D. 01/03/2024 2:18 PM Discharge Plan Visit Data Chief Complaint: Referred by Doctor Stated Complaint: REF BY FOR ABNORMAL EKG ED Provider: Stephon Hernandez Discharge Problem: Atrial fibrillation with RVR, Cardiomegaly Patient Disposition: Admitted As Inpatient Discharge Instructions Interventions: ED Discharge Assessment Last Done: 01/03/24 18:00
--- NOTE | 2024-01-03 14:20 | XRay Report ---
XR chest 1V portable CLINICAL HISTORY: Chest pain, nonspecific TECHNIQUE: Single frontal radiograph of the chest was obtained. Comparison: Comparison is made to chest radiograph 12/03/2011 FINDINGS: No lines and tubes are seen. Cardiomegaly is noted. Prominence and cephalization of the vasculature i s seen. No evidence of pleural effusion or pneumothorax. ACDF is seen. IMPRESSION: Cardiomegaly and mild pulmonary edema. ACT 112: Negative or not required by law. Electronically signed by: Leodan Dempsey M.D. 01/03/2024 2:18 PM
[2024-01-03 14:25] LABS: Basophils # (auto) 0.03 K/uL (0.00-0.20); Basophils % (auto) 0.4 %; Eosinophils # (auto) 0.13 K/uL (0.00-0.50); Eosinophils % (auto) 1.5 %; Hematocrit (blood only) 38.8 % (37.0-47.0); Hemoglobin 13.7 g/dl (12.0-16.0); Immature Granulocytes # (auto) 0.03 K/uL (0.01-0.20); Immature Granulocytes % (auto) 0.4 %; Lymphocytes # (auto) 1.49 K/uL (1.20-3.40); Lymphocytes % (auto) 17.5 %; Mean Corpuscular Hemoglobin 32.5 pg (25.0-34.0); Mean Corpuscular Hgb Conc 35.3 g/dL (32.0-36.0); Mean Corpuscular Volume 91.9 fL (80.0-100.0); Mean Platelet Volume 10.5 fL (9.4-12.4); Monocytes # (auto) 0.97 K/uL (0.11-0.59); Monocytes % (auto) 11.4 %; Neutrophils # (auto) 5.86 K/uL (1.40-6.50); Neutrophils % (auto) 68.8 %; Platelet Count 207 K/uL (130-400); RDW Coefficient of Variation 12.4 % (11.5-14.5); RDW Standard Deviation 41.4 fL (36.4-46.3); Red Blood Count 4.22 M/uL (4.20-5.40); White Blood Count 8.51 K/ul (4.8-10.8)
[2024-01-03 14:43] LABS: Albumin Globulin Ratio 1.8 (0.9-2); Albumin Level 4.3 gm/dl (3.4-5.0); BUN Creatinine Ratio 16.9 (10-20); Bilirubin,Total 0.6 mg/dl (0.2-1.0); Calcium 9.5 mg/dl (8.6-10.3); Creatinine Clr Calc Pharmacy 59.4 ml/min; Est GFR (Non-African American) 77.7 ml/min; Globulin 2.4 gm/dl (2.5-4.0); Potassium 3.1 mmol/L (3.5-5.1); Total Protein 6.7 gm/dl (6.0-8.3)
[2024-01-03 14:49] LABS: Troponin I High Sensitivity 3.6 pg/ml (0-14)
[2024-01-03 14:53] LABS: Partial Thromboplastin Time 27 Seconds (21-31); Prothrombin Time 10.7 Seconds (9.0-12.0)
[2024-01-03 14:59] LABS: Thyroid Stimulating Hormone 2.206 uIu/ml (0.300-4.500)
--- NOTE | 2024-01-03 16:00 | History & Physical Report ---
Date of Service January 03, 2024 Assessment & Plan (1) New onset atrial fibrillation: Plan: Sent in by PCP for new onset atrial fibrillation with RVR at 150 bpm No prior hx of atrial fibrillation Patient is asymptomatic at time of admission Troponin WNL Rate was not controlled after Lopressor 5mg IV x 3 in the ED Continuous telemetry monitoring Will give an additional metoprolol succinate 50 mg p.o. the evening of 01/02, then plan to start on metoprolol succinate 100mg p.o. BID on 01/03 Start patient on Eliquis 5 mg p.o. BID No need for dose adjustment; Age >80, however, body weight >60kg and Cr<1.50 Patient informed that she will likely need long-term anticoagulation Metoprolol tartrate 5 mg IV q4h as needed for HR >140 Echocardiogram ordered, pending A.m. CBC, BMP (2) Hypokalemia: Plan: Mild; K 3.1 on arrival Potassium supplementation 40mEq p.o. x 2 Hold HCTZ Continue home potassium supplementation of 20mEq p.o. QAM Recheck a.m. labs (3) Hypertension: Plan: Patient started on amlodipine for hypertension on December 06 Given this is the only change in medication recently, will hold amlodipine for now Continue metoprolol (as above) Losartan 50mg p.o. given on the evening of 01/02 Moving forward, will hold candesartan (or formulary equivalent losartan), while increasing metoprolol (4) Pulmonary edema: Plan: Pulmonary edema on CXR Lasix 20mg IV x 1 (5) Atrial fibrillation with RVR: (6) Acute congestive heart failure: Plan Disposition: Obs - Admit to PCU Telemetry Full code AHA diet VTE PPx: Will start on Eliquis 5mg p.o. BID History of Present Illness Chief Complaint: Referred by Doctor for New Onset A fib Primary Care Provider: Indio Silva is an 83-year-old female with PMH of JAMISON, HTN, dyslipidemia, and cervical radiculopathy. She presented at the behest of her PCP for new onset atrial fibrillation on 01/02. Patient has been checking her heart rate and blood pressure daily ever since starting amlodipine on December 06. She noticed that her heart rate became elevated on Monday 01/01, and then when taking it the morning of Tuesday 01/02 it continued to climb from 111-->126-->140bpm. She is currently asymptomatic at time of admission. She denies a history of A-fib. She has not been on blood thinners in the past. She reports that she took all of her regular morning medications today, and that amlodipine is the only recent change in medications. She was started on amlodipine at the beginning of November for elevated BP. Normally she measures her BP at home 2 hours after taking amlodipine in the mornings. She denies PMH of atrial fibrillation, AK, DVT/PE, T2DM, cancer, or stroke. Of note, she does endorse occasional BERNAL with hiking and long walks; patient's is at the bedside and reports that this may be at rest as well on occasion. No recent changes in diet; patient does not eat a salty diet. No sick contacts. No supplemental oxygen use at home. Patient denies smoking or tobacco use; occasional alcohol use (wine at supper). She just recently celebrated her 60th anniversary with her on 12/28. Patient is tachycardic at 126 bpm at time of admission; vitals otherwise stable. ED course: Lopressor 5 mg IV x 3 Potassium chloride 40 mill equivalents p.o. ROS: Patient endorses BERNAL x 2 years, and occasional left ankle swelling (patient has shots in her left knee and follows with orthopedics). Patient denies fever, chills, dizziness, lightheadedness, unintentional weight loss/gain, HENDERSON, chest pain, chest palpitations, pleuritic CP, cough, SOB at rest, abdominal pain, N/V/D, change in urinary/bowel habits, or leg swelling. Allergies Allergy/AdvReac Type Severity Reaction Status Date / Time latex Allergy Unknown LATEX Verified 09/14/23 15:54 BANDAGES - RASH/REDDENED. bacitracin Allergy Verified 09/14/23 15:54 [From Neosporin ([id number])] neomycin Allergy Verified 09/14/23 15:54 [From Neosporin ([id number])] polymyxin B Allergy Verified 09/14/23 15:54 [From Neosporin ([id number])] Home Medications Medication Instructions Recorded Confirmed Type mecobalamin (vitamin B12) 1,000 1,000 mcg sublingual DAILY 05/10/19 01/03/24 History mcg disintegrating tablet,sublingual amlodipine 5 mg tablet 5 mg PO DAILY 01/03/24 01/03/24 History candesartan 16 mg tablet 16 mg PO DAILY 01/03/24 01/03/24 History cholecalciferol (vitamin D3) 50 50 mcg PO DAILY 01/03/24 01/03/24 History mcg (2,000 unit) tablet (Vitamin D3) hydrochlorothiazide 25 mg tablet 25 mg PO DAILY 01/03/24 01/03/24 History metoprolol succinate 50 mg 50 mg PO DAILY 01/03/24 01/03/24 History tablet,extended release 24 hr potassium chloride 10 mEq 20 meq PO DAILY 01/03/24 01/03/24 History tablet,extended release vit C 250 mg-vit E 90 mg-zinc 40 1 tab PO BID 01/03/24 01/03/24 History mg-copper 1 [id number] capsule (PreserVision AREDS-2) Past Med/Surg History Medical History Left trigger finger Left carpal tunnel syndrome Effusion, left knee Left knee DJD Surgical History History of rectal polypectomy Status post trigger finger release History of neck surgery History of colonoscopy History of section History of cataract surgery History of carpal tunnel surgery Family History Aunt Breast cancer Mother Colorectal cancer Hypertension Denies family history of Ovarian cancer Stroke Asthma Social History Smoking Status: Never smoker Hx Alcohol Use: Yes Alcohol type: wine Hx Substance Use: No Preferred Language: Maltese Communication Ability: Effective 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: No Beliefs That Will Affect Care: None marital status: Current Living Situation: Spouse current occupational status: retired Other Information That Helps Us Care for You: No Feels Safe at Home: Yes Childhood Exposure to Second-Hand Smoke: No Assistive Devices: Glasses Review of Systems Review of Systems: See HPI above Physical Exam Physical Exam: General: no acute distress; pleasant affect; anxious; non-toxic appearing; well- nourished; cooperative HEENT: normocephalic, atraumatic; no scleral icterus; PERRLA; moist mucus membrane; vision and hearing grossly intact Neck: supple; negative for JVP; no lymphadenopathy; trachea midline Skin: warm, dry without signs of tenting; no cyanosis; no rashes, bruising, lesions, or erythema noted CV: chest wall NTP; irregularly irregular rhythm tachycardic at 126bpm; S1/S2 normal; no murmurs/rubs/gallops appreciated; pulses intact and symmetric at radial, DP, and PT Lungs: no acute respiratory distress; symmetrical chest wall expansion; clear breath sounds across all lung payne w/o adventitious sounds; no wheezing ABD: Soft, NTP; BS present; no rebound/guarding; no distention MSK: no tics or fasciculations; no edema noted in the LEs b/l, nonerythematous Neuro: A&Ox3; normal mood and affect; fluent speech; no focal deficits; sensation grossly intact in the LEs b/l Results & Data Results & Data Vital Signs (Past 12 Hours) Vital Signs Temp Pulse Resp BP Pulse Ox O2 Del Method 01/03/24 15:00 124 H 17 129/94 92 01/03/24 14:39 131 H 122/90 01/03/24 14:30 131 H 18 92 01/03/24 14:30 122/90 01/03/24 14:26 158 H 01/03/24 14:17 139 H 12 94 01/03/24 14:17 124/84 01/03/24 14:15 135 H 19 97 01/03/24 14:11 143 H 123/91 01/03/24 14:05 150 H 18 97 Room Air 01/03/24 14:00 142 H 21 01/03/24 13:48 144 H 27 H 01/03/24 13:48 123/91 01/03/24 13:45 157 H 20 01/03/24 13:13 18 01/03/24 13:13 36.8 C 150 H 18 149/84 H 97 Laboratory Results Abnormal lab results 01/03/24 Range/Units 14:00 [place] # (Auto) 0.97 H (0.11-0.59) K/uL Potassium 3.1 L (3.5-5.1) mmol/L Glucose 100 H (70-99(Fasting)) mg/dl Globulin 2.4 L (2.5-4.0) gm/dl Diagnostic Findings Chest X-Ray 01/03/24 13:25 XR chest 1V portable CLINICAL HISTORY: Chest pain, nonspecific TECHNIQUE: Single frontal radiograph of the chest was obtained. Comparison: Comparison is made to chest radiograph 12/03/2011 FINDINGS: No lines and tubes are seen. Cardiomegaly is noted. Prominence and cephalization of the vasculature is seen. No evidence of pleural effusion or pneumothorax. ACDF is seen. IMPRESSION: Cardiomegaly and mild pulmonary edema. ACT 112: Negative or not required by law. Electronically signed by: Leodan Dempsey M.D. 01/03/2024 2:18 PM ECG Additional Comments: EKG revealed atrial fibrillation with rapid ventricular response at 150 bpm; QTc 492 Only prior ECG for comparison done on November 02, 2011: NSR at 74 bpm Code Status & VTE Plan Code Status Full code (per discussion with patient and patient's /POA at the bedside) VTE Prophylaxis Plan VTE Prophylaxis will be ordered: Yes Supervising Physician Co-Signing Physician Notes I personally saw and examined the patient. I independently reviewed the labs, EKG, imaging, problem list, medication list, past medical history and family history. I verified all molina points and agree with Neil Adams PA-C with the following exceptions and/or additions: 83-year-old female presents to the ER with asymptomatic fast heart rate. She was diagnosed with atrial fibrillation in the emergency room on EKG. O/E HS increased rate, irregular rhythm, no murmurs, chest clear to auscultation bilaterally, abdomen soft nontender, 1+ pitting edema bilaterally equal A/P Atrial fibrillation with rapid ventricular rate - since she is already on metoprolol succinate we will just increase this with an additional 50 mg now, 100 mg tonight and start 200 mg in the morning as long as her blood pressure is stable and her heart rate remains above 90 bpm. No need for diltiazem drip overnight as long as she remains asymptomatic. Metoprolol 5 mg q.4 hourly PRN for heart rate greater than 140. [id number] - recommend anticoagulation with Eliquis 5 mg p.o. BID. Hold all other antihypertensives to allow up titration of rate controlling medications. Acute heart failure with unknown ejection fraction - suspect rate related, Lasix 20 mg IV, I's and O's, daily weights, no ongoing Lasix ordered as likely not to have ongoing pulmonary edema as long as she is rate controlled. Otherwise as above PG Care Time/CCT Total # of Minutes Spent Total Time Spent with Patient: Total time spent is greater than 50% in coordination of care (as documented) at patient's floor/unit and/or counseling patient: [place] [address] INT INP/OBS CARE 3/75MIN Patient Type New Medical Decision Making High Complexity Diagnoses New onset atrial fibrillation I48.91 Hypokalemia E87.6 Hypertension I10 Pulmonary edema J81.1 Atrial fibrillation with RVR I48.91 Acute congestive heart failure I50.9
[2024-01-03] MEDS: POTASSIUM CHLORIDE CRTAB 20 MEQ TABCR PO STA ×2 (16:01→20:53)
[2024-01-03] MEDS: METOPROLOL SUCC 50MG EXT REL TAB PO STA (17:44)
[2024-01-03] MEDS: APIXABAN 5 MG TABLET PO STA (17:44)
[2024-01-03] MEDS ORDERED: ACETAMINOPHEN 325 MG TAB PO PRN (17:51)
[2024-01-03] MEDS ORDERED: METOPROLOL TARTRATE 1 MG/ML VIAL IV PRN (17:51)
[2024-01-03 18:40] LABS: Appearance Urine Clear (Clear); Bilirubin Urine Negative (Negative); Blood Urine Negative (Negative); Color Urine Yellow; Glucose Urine UA Negative (Negative); Ketones Urine Negative (Negative); Leukocyte Esterase Urine Negative (Negative); Nitrite Urine Negative (Negative); Protein Urine Negative (Negative); Specific Gravity Urine 1.011 (1.000-1.030); Urobilinogen Urine Negative (Negative)
[2024-01-03] MEDS ORDERED: Nursing to Pharmacy Communication SCH (20:15)
[2024-01-03] MEDS: FUROSEMIDE INJ 20 MG/2 ML VIAL IV ONE (20:53)
[2024-01-03] MEDS: LOSARTAN POTASSIUM 50 MG TAB PO SCH (20:53)
[2024-01-03] MEDS: METOPROLOL SUCC 50MG EXT REL TAB PO SCH (20:56)
[2024-01-03] MEDS ORDERED: METOPROLOL SUCC 50MG EXT REL TAB PO SCH (21:00)
[2024-01-04 06:32] LABS: Basophils # (auto) 0.03 K/uL (0.00-0.20); Basophils % (auto) 0.3 %; Eosinophils # (auto) 0.15 K/uL (0.00-0.50); Eosinophils % (auto) 1.7 %; Hematocrit (blood only) 36.5 % (37.0-47.0); Hemoglobin 12.6 g/dl (12.0-16.0); Immature Granulocytes # (auto) 0.04 K/uL (0.01-0.20); Immature Granulocytes % (auto) 0.5 %; Lymphocytes # (auto) 1.57 K/uL (1.20-3.40); Lymphocytes % (auto) 17.8 %; Mean Corpuscular Hemoglobin 32.7 pg (25.0-34.0); Mean Corpuscular Hgb Conc 34.5 g/dL (32.0-36.0); Mean Corpuscular Volume 94.8 fL (80.0-100.0); Mean Platelet Volume 10.9 fL (9.4-12.4); Monocytes # (auto) 0.87 K/uL (0.11-0.59); Monocytes % (auto) 9.9 %; Neutrophils # (auto) 6.17 K/uL (1.40-6.50); Neutrophils % (auto) 69.8 %; Platelet Count 196 K/uL (130-400); RDW Coefficient of Variation 12.5 % (11.5-14.5); RDW Standard Deviation 42.9 fL (36.4-46.3); Red Blood Count 3.85 M/uL (4.20-5.40); White Blood Count 8.83 K/ul (4.8-10.8)
[2024-01-04 06:51] LABS: BUN Creatinine Ratio 17.9 (10-20); Calcium 9.1 mg/dl (8.6-10.3); Creatinine Clr Calc Pharmacy 53.2 ml/min; Est GFR (African American) 80.3 ml/min; Est GFR (Non-African American) 69.3 ml/min; Potassium 3.9 mmol/L (3.5-5.1)
--- NOTE | 2024-01-04 07:22 | Hospitalist Progress Note ---
Date of Service January 04, 2024 Assessment & Plan Plan (1) New onset atrial fibrillation: Plan: Sent in by PCP for new onset atrial fibrillation with RVR at 150 bpm No prior hx of atrial fibrillation Patient is asymptomatic at time of admission Troponin WNL Rate was not controlled after Lopressor 5mg IV x 3 in the ED Continuous telemetry monitoring Will give an additional metoprolol succinate 50 mg p.o. the evening of 01/02, then plan to start on metoprolol succinate 100mg p.o. BID on 01/03 Start patient on Eliquis 5 mg p.o. BID No need for dose adjustment; Age >80, however, body weight >60kg and Cr<1.50 Patient informed that she will likely need long-term anticoagulation Metoprolol tartrate 5 mg IV q4h as needed for HR >140 Echocardiogram ordered, pending A.m. CBC, BMP (2) Hypokalemia: Plan: Mild; K 3.1 on arrival Potassium supplementation 40mEq p.o. x 2 Hold HCTZ Continue home potassium supplementation of 20mEq p.o. QAM Recheck a.m. labs (3) Hypertension: Plan: Patient started on amlodipine for hypertension on December 06 Given this is the only change in medication recently, will hold amlodipine for now Continue metoprolol (as above) Losartan 50mg p.o. given on the evening of 01/02 Moving forward, will hold candesartan (or formulary equivalent losartan), while increasing metoprolol (4) Pulmonary edema: Plan: Pulmonary edema on CXR Lasix 20mg IV x 1 (5) Atrial fibrillation with RVR: (6) Acute congestive heart failure: Plan Disposition: Obs - Admit to PCU Telemetry Full code AHA diet VTE PPx: Will start on Eliquis 5mg p.o. BID Admission and Anticipated Discharge Date Admission Date: January 03, 2024 Results & Data Results & Data Vital Signs (Past 12 Hours) Vital Signs Temp Pulse Resp BP Pulse Ox O2 Del Method 01/04/24 03:25 36.5 C 112 H 18 96/75 L 95 Room Air 01/04/24 01:05 121 H 97/74 L 01/03/24 23:22 36.7 C 123 H 18 97/77 L 93 Room Air
[2024-01-04] MEDS: POTASSIUM CHLORIDE CRTAB 20 MEQ TABCR PO SCH (08:08)
[2024-01-04] MEDS: APIXABAN 5 MG TABLET PO SCH (08:09)
[2024-01-04] MEDS: METOPROLOL SUCC 50MG EXT REL TAB PO SCH (08:09)
[2024-01-04] MEDS ORDERED: LOSARTAN POTASSIUM 50 MG TAB PO SCH (09:00)
[2024-01-04] MEDS ORDERED: METOPROLOL SUCC 50MG EXT REL TAB PO SCH ×2 (09:00)
--- NOTE | 2024-01-04 17:12 | Discharge Summary ---
Date of Service January 04, 2024 Admission HPI Per Admitting Provider Shira is an 83-year-old female with PMH of JAMISON, HTN, dyslipidemia, and cervical radiculopathy. She presented at the behest of her PCP for new onset atrial fibrillation on 01/02. Patient has been checking her heart rate and blood pressure daily ever since starting amlodipine on December 06. She noticed that her heart rate became elevated on Monday 01/01, and then when taking it the morning of Tuesday 01/02 it continued to climb from 111-->126-->140bpm. She is currently asymptomatic at time of admission. She denies a history of A-fib. She has not been on blood thinners in the past. She reports that she took all of her regular morning medications today, and that amlodipine is the only recent change in medications. She was started on amlodipine at the beginning of November for elevated BP. Normally she measures her BP at home 2 hours after taking amlodipine in the mornings. She denies PMH of atrial fibrillation, MA, DVT/PE, T2DM, cancer, or stroke. Of note, she does endorse occasional BERNAL with hiking and long walks; patient's is at the bedside and reports that this may be at rest as well on occasion. No recent changes in diet; patient does not eat a salty diet. No sick contacts. No supplemental oxygen use at home. Patient denies smoking or tobacco use; occasional alcohol use (wine at supper). She just recently celebrated her 58th anniversary with her on 12/28. Patient is tachycardic at 126 bpm at time of admission; vitals otherwise stable. ED course: Lopressor 5 mg IV x 3 Potassium chloride 40 mill equivalents p.o. ROS: Patient endorses BERNAL x 2 years, and occasional left ankle swelling (patient has shots in her left knee and follows with orthopedics). Patient denies fever, chills, dizziness, lightheadedness, unintentional weight loss/gain, HENDERSON, chest pain, chest palpitations, pleuritic CP, cough, SOB at rest, abdominal pain, N/V/D, change in urinary/bowel habits, or leg swelling. Admission Exam Per Admitting Provider General: no acute distress; pleasant affect; anxious; non-toxic appearing; well- nourished; cooperative HEENT: normocephalic, atraumatic; no scleral icterus; PERRLA; moist mucus membrane; vision and hearing grossly intact Neck: supple; negative for JVP; no lymphadenopathy; trachea midline Skin: warm, dry without signs of tenting; no cyanosis; no rashes, bruising, les ions, or erythema noted CV: chest wall NTP; irregularly irregular rhythm tachycardic at 126bpm; S1/S2 normal; no murmurs/rubs/gallops appreciated; pulses intact and symmetric at radial, DP, and PT Lungs: no acute respiratory distress; symmetrical chest wall expansion; clear breath sounds across all lung payne w/o adventitious sounds; no wheezing ABD: Soft, NTP; BS present; no rebound/guarding; no distention MSK: no tics or fasciculations; no edema noted in the LEs b/l, nonerythematous Neuro: A&Ox3; normal mood and affect; fluent speech; no focal deficits; sensation grossly intact in the LEs b/l Principal Diagnosis New atrial fibrillation Discharge Exam General:Alert and oriented, no acute distress, quite pleasant HEENT: Normocephalic, moist oral mucosa, Cardio: Regular rate but irregularly irregular rhythm on exam, no murmur, Resp:Lungs clear to auscultation b/l, no wheezes or rhonchi, Skin: Warm, pink, dry, Discharge Data Allergies Allergy/AdvReac Type Severity Reaction Status Date / Time latex Allergy Unknown LATEX Verified 09/14/23 15:54 BANDAGES - RASH/REDDENED. bacitracin Allergy Verified 09/14/23 15:54 [From Neosporin ([id number])] neomycin Allergy Verified 09/14/23 15:54 [From Neosporin ([id number])] polymyxin B Allergy Verified 09/14/23 15:54 [From Neosporin ([id number])] Consultations 01/03/24 16:15 ED Decision to Admit Stat Hospital Course (1) Atrial fibrillation with RVR: (2) Obstructive sleep apnea: (3) Hypertension: Plan Pt is a 83 yo female with a past med hx of HFpEF, HTN, JAMISON on CPAP, and dyslipidemia who presents to the hospital on 01/02 for new onset a fib from her pcp. #New onset atrial fibrillation - Sent in by PCP for new onset atrial fibrillation with RVR at 150 bpm - No prior hx of atrial fibrillation - Patient was asymptomatic at time of admission, did say this morning she felt "foggy" but also did not rest well last night - Troponin WNL, telemetry showed afib but pt did at times convert to sinus - echo pending but prior was 07/2023 and EF 60-65% with no wall abnorm with mild mitral and tricuspid regurg - started on metoprolol succinate 200mg qam here and rate controlled 70-80s and pt feels well walking around on 01/03 - started on eliquis 5 mg BID 01/03 #Hypertension - Patient started on amlodipine for hypertension on December 06 - as we started her on metoprolol for rate control, held home HCTZ and amlod ipine; held candesartan on admission but continue on discharge in the evening, hold other two agents as BP good on metoprolol and do not want to risk hypotension Total Time Total Time Spent Total Time Spent (In Minutes): >30 Discharge Plan Discharge Items Patient Disposition: Home - Self-Care Reason For Visit: NEW ONSET ATRIAL FIBRILLATION Discharge Diagnosis: New onset atrial fibrillation Activity: Resume your previous activity Non-emergency contact: Primary Care Provider Call non-emergency contact if: you have any medication questions and your symptoms worsen Follow-up/Referrals: Indio Leroy [Primary Care Provider] - Diet: Regular Addtl Attending Provider Instructions: You were admitted for a new atrial fibrillation ("a. fib") diagnosis. Atrial fibrillation is an irregular heart rhythm that involves the atria "fibrillating" or quivering instead of mars rhythmically and squeezing out all the blood with each squeeze as they should. Typically, the atria contract, then the ventricles of the heart contract. The atria contract to fill the large chambers called ventricles with blood, and then the ventricles contract to squeeze blood into our lungs to get oxygenated on the right side and to the rest of our body and organs on the left side. There are two complications that can occur due to atrial fibrillation: 1.) Blood clot/stroke When the atria fibrillate, blood can pool in the atria and cause a clot that can go into the ventricle and then go into the brain when the correlated ventricle squeezes. Thus, having atrial fibrillation puts you at an increased risk of having a stroke. For this reason, we started you on an anticoagulant (also called a "blood thinner") so even if the atria fibrillate, a clot is unable to form and thus you do not get a stroke from your heart being in an atrial fibrillation rhythm. 2.) Heart strain The other complication that can happen from atrial fibrillation is that a fast heart rate of over 110 all the time can cause stress on the heart. For this reason, you were started and maintained on a medication called metoprolol. Atrial fibrillation is very very common amongst older folks and is caused by a faulty electrical system of the heart that can occur with aging. When treated to keep your heart rate down and while on a blood thinner to prevent stroke, atrial fibrillation typically does not bother people and no further interventions need to be done. Some people stay in atrial fibrillation all the time (called "permanent atrial fibrillation") and do not feel it or can go in and out of atrial fibrillation and back to normal rhythm at random (called "paroxysmal atrial fibrillation") and not even notice. For the next 1-2 weeks, please take your blood pressure and pulse at least once daily and write them down for when you see your primary care doctor next so they can see how you tolerate your new medication regime listed below. Take this log with you to your next appointment. Medications: Your medication list has been reviewed and reconciled upon discharge to ensure accuracy and continuity of care. An updated list of all your medications is included with your hospital discharge paperwork. Please review this list closely, and make note of any changes. We sent a new medication called Eliquis (apixaban) to your pharmacy. Take Eliquis (apixaban) as 5 mg twice daily. This is your anticoagulant ( also called a "blood thinner") to prevent stroke in those with atrial fibrillation. We sent a new medication called Metoprolol succinate ER to your pharmacy. Take Metoprolol succinate ER 200 mg (4x 50 mg tablets) once daily in the morning. This is the medication to keep your heart rate in an acceptable range while you have atrial fibrillation (what we call "rate control"). You may notice that you have this medication at home already, this is just new dosing that instead of 50 mg (1 pill) you take 200 mg (4 pills) once daily in the morning. Additionally, please STOP taking your amlodipine and hydrochlorothiazide. These medications are for your blood pressure, but as we have started you on metoprolol, it is best to hold these and monitor your blood pressure at least daily for the next week until you see your primary care physician to evaluate the need for these two medications in addition to your metoprolol. Metoprolol is not typically used for blood pressure but it can also lower blood pressure. Continue taking your blood pressure agent called Candesartan once daily in the evening around dinnertime. Continue all other of your home medications. Take your medications as instructed; do not skip a dose of your medicines. Make sure all of your doctors know every medicine you are taking (including o awt-yus-kceryrs medicines, vitamins, and supplements). Call your primary care provider before taking any new medicines (including over- the-counter medicines, vitamins, and supplements), because some of these may interact with your current medications, or may make your symptoms worse. Tell your primary care provider if you cannot afford your medications. Activity: You can do normal everyday activities as your body allows. Take rest breaks if you feel tired. Do not overexert. Stop activity if you have pain, shortness of breath or feel dizzy. Follow-up appointments: Make an appointment with your primary care physician within one week of discharge. A copy of this summary will be sent to them. Every time you see your primary care physician, or any other doctor, bring your medication list and a list of questions. CONTACT YOUR PRIMARY CARE PROVIDER if you experience any of the following: Shortness of breath or difficulty breathing Swelling of your feet, ankles, hands or abdomen Feeling tired with normal activity or experiencing dizziness or fainting Difficulty following your treatment plan, or difficulty taking medications CALL 911 OR GO TO THE EMERGENCY DEPARTMENT if you experience any of the following: Severe abdominal pain or nausea/vomiting Severe chest pain, or chest pain that radiates (moves) to your jaw or arm Sudden, severe shortness of breath or difficulty breathing Thank you for allowing us to participate in your care. Radha Barragan DO Pending Studies at Discharge: No Stand-Alone Forms: [facility] Medications and DC Order Prescriptions: New metoprolol succinate 50 mg Tablet Extended Release 24 Hr 200 mg PO QAM 30 Days Qty: 120 2RF Eliquis 5 mg Tablet 5 mg PO BID Qty: 60 2RF Continued mecobalamin (vitamin B12) 1,000 mcg tablet,disintegrating 1,000 mcg SL DAILY potassium chloride 10 mEq tablet extended release 20 meq PO DAILY candesartan 16 mg tablet 16 mg PO DAILY cholecalciferol (vitamin D3) [Vitamin D3] 50 mcg (2,000 unit) Tablet 50 mcg PO DAILY PreserVision AREDS-2 250-90-40-1 mg Capsule 1 tab PO BID Discontinued amlodipine 5 mg tablet 5 mg PO DAILY metoprolol succinate 50 mg tablet extended release 24 hr 50 mg PO DAILY hydrochlorothiazide 25 mg tablet 25 mg PO DAILY Discharge Orders: Discharge Order (Routine); Ordered 01/04/24 Ordered By: Radha North/Other Patient Handouts: AFib Preventing Stroke, AFib Admission Data Admit Date/Time: 01/03/24 16:54 Attending Provider: Ross Valentin Admit Provider: Ken Zambrano Primary Care Provider: Indio Leroy Other Providers: Ken Zambrano Supervising Physician Co-Signing Physician Notes I personally examined the patient and verified all molina points of history and exam, discussed case, and agree with decision making with Dr Barragan Feeling good. Seen multiple times today. Later in the day walking the hallways with no chest pain/shortness of breath/dyspnea on exertion, and heart rates in the mid 70s. Feels up to going home. Discussed case with patient extensively this morning, and again extensively with patient and this evening. Answered all questions to the best my ability and to their satisfaction. Vitals noted, in general she is awake and alert pleasant no distress. HEENT normocephalic atraumatic mucous membranes moist. Breathing unlabored no accessory muscle use good effort. Skin without rashes pallor or icterus. Sinus rhythm in the 70s every time I check her today. Echocardiogram pending at the time of dischargemade this clear to patient and , but also of low concern for any significant or major treatment plan changing type findings. New onset A-fibRVR now resolvedshe has converted to sinus rhythm, but more importantly her rates are appropriate to her situation and she feels good. Home on higher dose of metoprolol (hold amlodipine and hydrochlorothiazide for now, follow blood pressuresresume depending on what her pressures are doing as an outpatient), anticoagulation with Eliquis. Close PCP follow-up. Discussed checking heart rates twice a day for now, following blood pressurecan start to check less often as her situation levels out more. Outpatient follow-up with PCP in regards to echocardiogram given that it is still pending at the time of this dictation. Otherwise as above. Resident Activity Tracking Resident Involvement: Resident Care Provided Care Provided: Adult Hospital Medicine
--- NOTE | 2024-01-04 18:50 | Billing Data ---
Date of Service January 04, 2024 Coding Level of Care Code 25731 INP/OBS DISCH >30 MIN
--- NOTE | 2024-01-04 19:16 | XCELERA ---
[id number]
--- NOTE | 2024-01-05 23:14 | Electrocardiogram Report ---
Test Reason : Blood Pressure : / mmHG Vent. Rate : 150 BPM Atrial Rate : 000 BPM P-R Int : 000 ms QRS Dur : 088 ms QT Int : 312 ms P-R-T Axes : 000 060 134 degrees QTc Int : 492 ms Atrial fibrillation with rapid ventricular response Low voltage QRS Septal infarct , age undetermined Abnormal ECG When compared with ECG of 02-NOV-2011 09:47, Atrial fibrillation has replaced Sinus rhythm Vent. rate has increased BY 76 BPM Questionable change in QRS axis Nonspecific T wave abnormality now evident in Lateral leads Confirmed by Jem Mathews ([id number]) on 01/05/2024 11:14:00 PM Referred By: REFERRED SELF Confirmed By:Jem Mathews
== END 2024-01-04 19:47 | disposition home or self-care (01) ==
LOC: ED 13:12 → 2E 13:12 → SUATTDRO 16:54 → 2E 18:00

== ENCOUNTER 2025-07-05 14:20 | Observation (INO) ==
--- NOTE | 2025-07-05 14:39 | Emergency Department Note ---
Impression & Plan Weakness, Rigors, Leukocytosis, H/O hand surgery ED Provider Note NAME: NKECHI WATT AGE: 85 SEX: F : 1940 ARRIVES VIA: Ambulance INFORMANT: [Patient][ems, nursing] ED PROVIDER(S): [Joel Mahajan MD] CHIEF COMPLAINT: Shaking, dizzy, weak HISTORY OF PRESENT ILLNESS: The patient is an 85-year-old female who states that last night before bed she had an episode of some shakes. Today, about an hour or so ago, she had some shakes again. She felt a bit dizzy and lightheaded. No loss of consciousness. She feels washed out. There has been no fever, no cough or congestion or urinary complaints. No vomiting. She did have a loose bowel movement today though, it was nonbloody. Of note, the patient did have right hand surgery for trigger finger performed 2 weeks ago. PMHx/PSHx/Social Hx: See Below PHYSICAL EXAM: GENERAL: Patient is in no acute distress. HEENT: No acute trauma, normocephalic atraumatic, mucous membranes moist, no nasal congestion. NECK: No stridor, no adenopathy, no meningismus, trachea is midline. LUNGS: Clear to auscultation bilaterally, no wheeze, no rhonchi, breath sounds equal. HEART: Without murmurs gallops or rubs, regular rate and rhythm. ABDOMEN: Soft, nontender, no peritonitis. EXTREMITIES: No cyanosis. The patient does have a brace and a dressing on the right upper extremity. This was removed. Her surgical wounds appear to be healing well, no drainage or significant erythema. NEUROLOGIC: Oriented x 3, no acute motor or sensory deficits, no focal weakness. SKIN: No jaundice, no diaphoresis. DIFFERENTIAL DIAGNOSIS: Bacteremia or sepsis, UTI, dehydration, viral illness, dysrhythmia, among others. EMERGENCY DEPARTMENT PROCEDURES: MEDICAL DECISION MAKING: There is a moderate leukocytosis, this certainly could be consistent with infection. There is a normal hemoglobin and platelet count. No bandemia. No renal failure or significant electrolyte abnormality. Patient appeared to be in euthyroid state. No concerning liver enzyme elevation. ECG showed a sinus bradycardia, no ischemia. Cardiac enzyme testing x 1 is not consistent with acute cardiac injury. COVID, influenza and RSV test were negative. Chest x-ray did not show any focal pneumonia. Brain CT showed no acute bleed or mass effect. Urinalysis did not show findings of infection. Patient received a 500 cc saline bolus. She received 2 g of IV ceftriaxone as antibiotic coverage. Given her recent hand surgery, given her leukocytosis and rigors, I do think the patient deserves a hospital stay for potential surgical wound infection or even bacteremia. I did speak with the patient and family. I spoke with case management, the on- call hospitalist was consulted. Prior/Outside records/notes reviewed: Today's EMS notes describing her presentation and transport to this hospital. ECG per my interpretation: Indication was dizziness. The ECG shows a sinus bradycardia with a rate of 59. There is a potential old inferior infarct. There is no ST elevation, no PVCs. The QTc is 445. Continuous Cardiac Monitoring per my interpretation: An order was placed for continuous cardiac monitoring. The monitor shows a rate of 64 with normal sinus rhythm. Imaging/x-ray results per my interpretation: Chest x-ray shows some chronic change and some mild cardiomegaly. There is no focal infiltrate. Chronic Medical/Social conditions affecting care: Advanced age, chronic Eliquis use. Care/Management discussed with: Case management, the on-call hospitalist Level of care consideration(s): After review of the information above and other included data: --I believe the patient requires escalation of care to admission DISPOSITION: Admission Past Med/Surg History Problem List H/O hand surgery (Acute) Leukocytosis (Acute) Rigors (Acute) Weakness (Acute) Right trigger finger Mitral regurgitation Acute congestive heart failure Pulmonary edema Cardiomegaly (Acute) New onset atrial fibrillation Hypokalemia Atrial fibrillation with RVR (Acute) Left trigger finger Arthritis of left hand Carpal tunnel syndrome, right Cervical radiculopathy Left carpal tunnel syndrome Effusion, left knee 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 12/2023 [facility] IP - pt denies Obstructive sleep apnea CPAP History of melanoma History of squamous cell carcinoma Dyslipidemia History of CHF (congestive heart failure) 12/2023 [facility] IP - [facility] Cardiology Dr Salas Mitral regurgitation [facility] Card[facility] Salas Hypertension Cardiomegaly [facility] Card[facility] Salas Atrial fibrillation with RVR Eliquis - "converted" - [facility] Cardiology Dr Salas Surgical History History of melanoma excision History of squamous cell carcinoma excision History of rectal polypectomy Status post trigger finger release History of neck surgery History of colonoscopy History of section History of cataract surgery History of carpal tunnel surgery Family History Aunt Breast cancer Mother Colorectal cancer Hypertension Denies family history of Ovarian cancer Stroke Asthma Social History Smoking Status: Never smoker Second Hand Exposure: No; Do You Dip or Chew Tobacco: No; Hx Alcohol Use: Yes Alcohol type: wine Hx Substance Use: No Preferred Language: Finnish Communication Ability: Effective Translator And Interpreter Required: No Beliefs That Will Affect Care: None marital status: Current Living Situation: Spouse current occupational status: retired Feels Safe at Home: Yes Childhood Exposure to Second-Hand Smoke: No Assistive Devices: CPAP and Glasses Allergies Allergies Allergy/AdvReac Type Severity Reaction Status Date / Time bacitracin Allergy Intermediate Skin Verified 06/27/25 13:38 [From Neosporin Irritation ([id number])] latex Allergy Intermediate Redness, Verified 06/27/25 13:38 Rash neomycin Allergy Intermediate Skin Verified 06/27/25 13:38 [From Neosporin Irritation ([id number])] polymyxin B Allergy Intermediate Skin Verified 06/27/25 13:38 [From Neosporin Irritation ([id number])] Home Meds Home Medications Medication Instructions Recorded Confirmed mecobalamin (vitamin B12) 1,000 1,000 mcg sublingual DAILY 05/10/19 07/05/25 mcg disintegrating tablet,sublingual candesartan 16 mg tablet (Atacand) 16 mg PO HS 01/03/24 07/05/25 cholecalciferol (vitamin D3) 50 50 mcg PO DAILY 01/03/24 07/05/25 mcg (2,000 unit) tablet (Vitamin D3) vit C 250 mg-vit E 90 mg-zinc 40 1 tab PO BID 01/03/24 07/05/25 mg-copper 1 [id number] capsule (PreserVision AREDS-2) spironolactone 25 mg tablet 25 mg PO QAM 10/29/24 07/05/25 (Aldactone) diltiazem HCl 180 mg capsule,24 180 mg PO QAM 01/11/25 07/05/25 hr,extended release metoprolol succinate 200 mg 100 mg PO QAM 01/11/25 07/05/25 tablet,extended release 24 hr duloxetine 30 mg capsule,delayed 30 mg PO DAILY 07/05/25 07/05/25 release hydrocodone 5 mg-acetaminophen 325 1 tab PO .Q4-6 PRN Severe Pain 07/05/25 07/05/25 mg tablet (Scale Score 7-10) Previous Rx's Medication Instructions Recorded apixaban 5 mg tablet (Eliquis) 5 mg PO BID #60 tabs 01/04/24 Results & Data (ED) Vital Signs Vital Signs - 24 hr 07/05/25 14:37 07/05/25 15:32 07/05/25 15:57 Temperature 36.4 C L Temperature Source Oral Pulse Rate 64 61 58 L Pulse Rate from SpO2 Sensor Respiratory Rate 18 15 Respiratory Effort / Characteristics Non-Labored Spontaneous Respiratory Depth Normal Blood Pressure 140/66 Blood Pressure Mean 90 Pulse Oximetry 99 95 Oxygen Delivery Method Room Air Room Air Sepsis Recent Fever Within 48 Hours No Sepsis New/Unexplained Change in Mental Status N/A Sepsis Action Taken by Nursing No Action Required 07/05/25 15:57 07/05/25 16:51 07/05/25 17:24 Temperature Temperature Source Pulse Rate 93 H 59 L 56 L Pulse Rate from SpO2 Sensor 57 L 58 L 56 L Respiratory Rate 26 H 19 19 Respiratory Effort / Characteristics Respiratory Depth Blood Pressure 123/62 123/63 120/54 L Blood Pressure Mean 82 83 76 Pulse Oximetry 94 95 96 Oxygen Delivery Method Sepsis Recent Fever Within 48 Hours Sepsis New/Unexplained Change in Mental Status Sepsis Action Taken by Nursing 07/05/25 17:51 07/05/25 18:24 Temperature Temperature Source Pulse Rate 59 L 64 Pulse Rate from SpO2 Sensor 59 L Respiratory Rate 18 23 Respiratory Effort / Characteristics Respiratory Depth Blood Pressure 124/81 130/60 Blood Pressure Mean 95 83 Pulse Oximetry 95 97 Oxygen Delivery Method Room Air Sepsis Recent Fever Within 48 Hours Sepsis New/Unexplained Change in Mental Status Sepsis Action Taken by Custodial Medications Current Medication List: was personally reviewed by me Laboratory Data Attestation: I reviewed the patient's lab results. 07/05/25 23:29 07/05/25 14:35 Lab Results 07/05/25 07/05/25 07/05/25 Range/Units 14:35 15:01 16:10 WBC 15.07 H (4.8-10.8) K/ul RBC 4.62 (4.20-5.40) M/uL Hgb 14.4 (12.0-16.0) g/dl Hct 42.9 (37.0-47.0) % MCV 92.9 (80.0-100.0) fL MCH 31.2 (25.0-34.0) pg MCHC 33.6 (32.0-36.0) g/dL RDW Std Deviation 43.8 (36.4-46.3) fL RDW Coeff of [place] 12.9 (11.5-14.5) % Plt Count 284 (130-400) K/uL MPV 10.4 (9.4-12.4) fL Immature Gran % (Auto) 1.0 % Neut % (Auto) 79.7 % Lymph % (Auto) 11.7 % [place] % (Auto) 6.0 % Eos % (Auto) 1.3 % Baso % (Auto) 0.3 % Neut # (Auto) 12.03 H (1.40-6.50) K/uL Lymph # (Auto) 1.76 (1.20-3.40) K/uL [place] # (Auto) 0.90 H (0.11-0.59) K/uL Eos # (Auto) 0.19 (0.00-0.50) K/uL Baso # (Auto) 0.04 (0.00-0.20) K/uL Immature Gran # (Auto) 0.15 (0.01-0.20) K/uL Sodium 136 (136-145) mmol/L Potassium 4.5 (3.5-5.1) mmol/L Chloride 100 (98-107) mmol/L Carbon Dioxide 26 (21-32) mmol/L Anion Gap 10 (3-11) BUN 12 (6-23) mg/dl Creatinine 0.81 (0.6-1.2) mg/dl Est Cr Clr Drug Dosing 50.6 ml/min eGFR 70.21 BUN/Creatinine Ratio 14.8 (10-20) Glucose 187 H (70-99(Fasting)) mg/dl Lactate (0.4-2.0) mmol/L Calcium 9.8 (8.6-10.3) mg/dl Magnesium 2.0 (1.7-2.4) mg/dl Total Bilirubin 0.7 (0.2-1.0) mg/dl AST 16 (13-39) U/L ALT 14 (7-52) U/L Alkaline Phosphatase 108 H (34-104) U/L Troponin I High Sens 4.0 (0-14) pg/ml Total Protein 6.9 (6.0-8.3) gm/dl Albumin 4.1 (3.4-5.0) gm/dl Globulin 2.8 (2.5-4.0) gm/dl Albumin/Globulin Ratio 1.5 (0.9-2) TSH 1.126 (0.300-4.500) uIu/ml Urine Color Yellow Urine Appearance Clear (Clear) Urine pH 7.5 (4.5-7.5) Ur Specific [place] 1.008 (1.000-1.030) Urine Protein Negative (Negative) Urine Glucose (UA) Negative (Negative) Urine Ketones Negative (Negative) Urine Blood Negative (Negative) Urine Nitrite Negative (Negative) Urine Bilirubin Negative (Negative) Urine Urobilinogen Negative (Negative) Ur Leukocyte Esterase Negative (Negative) Urine Comment SARS-CoV-2 (PCR) NEGATIVE (Negative) Influenza Type A (PCR) Negative (Neg) Influenza Type B (PCR) Negative (Neg) RSV (RT-PCR) Negative (Neg) 07/05/25 Range/Units 16:27 WBC (4.8-10.8) K/ul RBC (4.20-5.40) M/uL Hgb (12.0-16.0) g/dl Hct (37.0-47.0) % MCV (80.0-100.0) fL MCH (25.0-34.0) pg MCHC (32.0-36.0) g/dL RDW Std Deviation (36.4-46.3) fL RDW Coeff of [place] (11.5-14.5) % Plt Count (130-400) K/uL MPV (9.4-12.4) fL Immature Gran % (Auto) % Neut % (Auto) % Lymph % (Auto) % [place] % (Auto) % Eos % (Auto) % Baso % (Auto) % Neut # (Auto) (1.40-6.50) K/uL Lymph # (Auto) (1.20-3.40) K/uL [place] # (Auto) (0.11-0.59) K/uL Eos # (Auto) (0.00-0.50) K/uL Baso # (Auto) (0.00-0.20) K/uL Immature Gran # (Auto) (0.01-0.20) K/uL Sodium (136-145) mmol/L Potassium (3.5-5.1) mmol/L Chloride (98-107) mmol/L Carbon Dioxide (21-32) mmol/L Anion Gap (3-11) BUN (6-23) mg/dl Creatinine (0.6-1.2) mg/dl Est Cr Clr Drug Dosing ml/min eGFR BUN/Creatinine Ratio (10-20) Glucose (70-99(Fasting)) mg/dl Lactate 1.8 (0.4-2.0) mmol/L Calcium (8.6-10.3) mg/dl Magnesium (1.7-2.4) mg/dl Total Bilirubin (0.2-1.0) mg/dl AST (13-39) U/L ALT (7-52) U/L Alkaline Phosphatase (34-104) U/L Troponin I High Sens (0-14) pg/ml Total Protein (6.0-8.3) gm/dl Albumin (3.4-5.0) gm/dl Globulin (2.5-4.0) gm/dl Albumin/Globulin Ratio (0.9-2) TSH (0.300-4.500) uIu/ml Urine Color Urine Appearance (Clear) Urine pH (4.5-7.5) Ur Specific [place] (1.000-1.030) Urine Protein (Negative) Urine Glucose (UA) (Negative) Urine Ketones (Negative) Urine Blood (Negative) Urine Nitrite (Negative) Urine Bilirubin (Negative) Urine Urobilinogen (Negative) Ur Leukocyte Esterase (Negative) Urine Comment SARS-CoV-2 (PCR) (Negative) Influenza Type A (PCR) (Neg) Influenza Type B (PCR) (Neg) RSV (RT-PCR) (Neg) Administered Medications Discontinued Medications Sodium Chloride (Nss) 500 mls @ 999 mls/hr IV .Q31M SHERLYN Stop: 07/05/25 15:15 Last Infusion: 07/05/25 16:15 Dose: Infused Documented By: Admin: 07/05/25 15:42 Dose: 999 mls/hr Documented By: RICHIE Ceftriaxone Sodium (Rocephin) 2,000 mg in 50 mls @ 100 mls/hr IV NOW STA Stop: 07/05/25 18:06 Last Infusion: 07/05/25 19:29 Dose: Infused Documented By: Admin: 07/05/25 18:08 Dose: 100 mls/hr Documented By: RICHIE Imaging Data Radiologist's Impression: Chest X-Ray 07/05/25 14:37 XR chest 1V portable CLINICAL HISTORY: weakness COMPARISON STUDY: Chest radiograph January 03, 2024. FINDINGS: No pneumothorax or pleural effusion is present. There is no consolidation or evidence for pulmonary edema. Cardiomegaly is again noted. Postoperative findings within the cervical spine are partially imaged. IMPRESSION: No acute cardiopulmonary findings. Cardiomegaly. ACT 112: Negative or not required by law. Electronically signed by: Edson Parish M.D. 07/05/2025 3:[address] 07/05/25 14:37 CT head/brain wo con CLINICAL HISTORY: dizzy. TECHNIQUE: Multiple axial CT images of the head were obtained without contrast. A dose lowering technique was utilized adhering to the principles of ALARA. CT DOSE: 703.85 mGy.cm COMPARISON: None FINDINGS: No intracranial hemorrhage seen. No mass effect, midline shift, or hydrocephalus. There are mild chronic small vessel ischemic changes. No skull fracture seen. Visualized paranasal sinuses and mastoid air cells are clear. IMPRESSION: No acute findings. ACT 112: Negative or not required by law. The above report was generated using voice recognition software. It may contain grammatical, syntax or spelling errors. Electronically signed by: Carlos Gibson M.D. 07/05/2025 3:43 PM Discharge Plan Visit Data Chief Complaint: Flu Like Symptoms Stated Complaint: Neuro symptoms/tremors ED Provider: Joel Mahajan Discharge Problem: Weakness, Rigors, Leukocytosis, H/O hand surgery Patient Disposition: Admitted As Inpatient Condition: Fair Discharge Instructions Interventions: ED Discharge Assessment Last Done: 07/05/25 21:40 Discharge Problem: Leukocytosis Qualifiers: Leukocytosis type: unspecified Qualified Code(s): D72.829 - Elevated white blood cell count, unspecified
[2025-07-05 14:48] LABS: Hematocrit (blood only) 42.9 % (37.0-47.0); Hemoglobin 14.4 g/dl (12.0-16.0); Immature Granulocytes # (auto) 0.15 K/uL (0.01-0.20); Immature Granulocytes % (auto) 1.0 %; Mean Corpuscular Hemoglobin 31.2 pg (25.0-34.0); Mean Corpuscular Volume 92.9 fL (80.0-100.0); Platelet Count 284 K/uL (130-400); RDW Standard Deviation 43.8 fL (36.4-46.3); Red Blood Count 4.62 M/uL (4.20-5.40); White Blood Count 15.07 K/ul (4.8-10.8)
[2025-07-05 15:11] LABS: Alanine Aminotransferase 14.0 U/L (7-52); Albumin Globulin Ratio 1.5 (0.9-2); Albumin Level 4.1 gm/dl (3.4-5.0); Alkaline Phosphatase 108.0 U/L (34-104); Anion Gap 10.0 (3-11); Bilirubin,Total 0.7 mg/dl (0.2-1.0); Blood Urea Nitrogen 12.0 mg/dl (6-23); Calcium 9.8 mg/dl (8.6-10.3); Carbon Dioxide 26.0 mmol/L (21-32); Chloride 100.0 mmol/L (98-107); Creatinine Clr Calc Pharmacy 50.6 ml/min; Globulin 2.8 gm/dl (2.5-4.0); Glucose 187.0 mg/dl (70-99(Fasting)); Magnesium 2.0 mg/dl (1.7-2.4); Potassium 4.5 mmol/L (3.5-5.1); Sodium 136.0 mmol/L (136-145); Total Protein 6.9 gm/dl (6.0-8.3)
[2025-07-05 15:26] LABS: Thyroid Stimulating Hormone 1.126 uIu/ml (0.300-4.500)
--- NOTE | 2025-07-05 15:26 | XRay Report ---
XR chest 1V portable CLINICAL HISTORY: weakness COMPARISON STUDY: Chest radiograph January 03, 2024. FINDINGS: No pneumothorax or pleural effusion is present. There is no consolidation or evidence for p ulmonary edema. Cardiomegaly is again noted. Postoperative findings within the cervical spine are par tially imaged. IMPRESSION: No acute cardiopulmonary findings. Cardiomegaly. ACT 112: Negative or not required by law. Electronically signed by: Edson Parish M.D. 07/05/2025 3:23 PM
[2025-07-05] MEDS: SODIUM CHLORIDE 0.9% 500 ML IV SCH (15:42)
--- NOTE | 2025-07-05 15:44 | CT Scan Report ---
CT head/brain wo con CLINICAL HISTORY: dizzy. TECHNIQUE: Multiple axial CT images of the head were obtained without contrast. A dose lowering tech nique was utilized adhering to the principles of ALARA. CT DOSE: 703.85 mGy.cm COMPARISON: None FINDINGS: No intracranial hemorrhage seen. No mass effect, midline shift, or hydrocephalus. There are mild chronic small vessel ischemic changes. No skull fracture seen. Visualized paranasal sinuses and mastoid air cells are clear. IMPRESSION: No acute findings. ACT 112: Negative or not required by law. The above report was generated using voice recognition software. It may contain grammatical, syntax o r spelling errors. Electronically signed by: Carlos Gibson M.D. 07/05/2025 3:43 PM
[2025-07-05 15:59] LABS: Influenza A virus by PCR Negative (Neg); Influenza B virus by PCR Negative (Neg); SARS CoV2 RNA(COVID-19) Ceph NEGATIVE (Negative)
[2025-07-05 16:24] LABS: Appearance Urine Clear (Clear); Glucose Urine UA Negative (Negative)
[2025-07-05] MEDS: cefTRIAXone SODIUM 2,000 MG/50 ML BAG IV STA (18:08)
--- NOTE | 2025-07-05 19:02 | History & Physical Report ---
Date of Service July 05, 2025 Assessment & Plan (1) Right trigger finger: Plan: Possible rigors,? Right hand cellulitis S/p surgical intervention to her right third digit due to trigger finger Slight pinkness/erythema of the right MCP at surgical site, no obvious purulence/discharge/fluctuance Treated with Rocephin. Dapto deferred, will continue and reassess on clinical evaluation Did update orthopedics, agree with current management. If patient worsens or clinical suspicion for deeper infection arises then can image and order MRSA coverage at that time Leukocytosis is present without a left shift. Trended Afebrile, nontoxic at the bedside No respiratory, GI, or urinary infectious symptoms on admission CBC, metabolic panel, CRP trended A-fib, paroxysmal; history of CHF; hypertension Eliquis temporarily held and transition to heparin in case of any worsening at her surgical site requiring intervention. If doing well and progressing can transition back to Eliquis on discharge No chest pain/anginal symptoms Continue diltiazem, candesartan, spironolactone, metoprolol Last echo EF 50 to 55%, LVSF low normal, normal wall motion DVT prophylaxis: Anticoagulated Diet: Heart healthy Disposition: MSO (2) Atrial fibrillation with RVR: (3) Obstructive sleep apnea: (4) Hypertension: (5) History of CHF (congestive heart failure): History of Present Illness Primary Care Provider: Indio Silva is seen with her at bedside. She reports that she had an episode last night and this morning where she suddenly had a shaking episode and felt off. She does not think she had a fever, she did not feel lightheaded or dizzy, did not have chest pain but felt not right and very shaky. She did not lose consciousness nor did she pass out. She has noted that at her right hand surgical site at the base of the middle finger there is a little bit of pinkness/redness which has just felt over the last 24-48 hours. She had a small amount of blood discharge from the base of the wound, but no purulent material. She has been doing physical therapy with active and passive exercises, most of her active range of motion remains limited however she has not noticed any change in pain. She has had no chest pain or chest pressure. No shortness of breath. No dysuria. No abdominal pain. At time bedside assessment she reports that her hand feels similar and is not more painful than normal, the only thing she notices abnormal is the pinkness and she does not currently feel sick. She felt a little bit nauseous but has not vomited. No change in sensation over the hand Medical History: Reviewed Medications: Reviewed Surgical History: Reviewed Family history: Reviewed Allergies: Reviewed Social History: No tobacco/etoh Code Status: Full Allergies Allergy/AdvReac Type Severity Reaction Status Date / Time bacitracin Allergy Intermediate Skin Verified 06/27/25 13:38 [From Neosporin Irritation ([id number])] latex Allergy Intermediate Redness, Verified 06/27/25 13:38 Rash neomycin Allergy Intermediate Skin Verified 06/27/25 13:38 [From Neosporin Irritation ([id number])] polymyxin B Allergy Intermediate Skin Verified 06/27/25 13:38 [From Neosporin Irritation ([id number])] Home Medications Medication Instructions Recorded Confirmed Type mecobalamin (vitamin B12) 1,000 1,000 mcg sublingual DAILY 05/10/19 07/05/25 History mcg disintegrating tablet,sublingual candesartan 16 mg tablet (Atacand) 16 mg PO HS 01/03/24 07/05/25 History cholecalciferol (vitamin D3) 50 50 mcg PO DAILY 01/03/24 07/05/25 History mcg (2,000 unit) tablet (Vitamin D3) vit C 250 mg-vit E 90 mg-zinc 40 1 tab PO BID 01/03/24 07/05/25 History mg-copper 1 [id number] capsule (PreserVision AREDS-2) apixaban 5 mg tablet (Eliquis) 5 mg PO BID #60 tabs 01/04/24 07/05/25 Rx spironolactone 25 mg tablet 25 mg PO QAM 10/29/24 07/05/25 History (Aldactone) diltiazem HCl 180 mg capsule,24 180 mg PO QAM 01/11/25 07/05/25 History hr,extended release metoprolol succinate 200 mg 100 mg PO QAM 01/11/25 07/05/25 History tablet,extended release 24 hr duloxetine 30 mg capsule,delayed 30 mg PO DAILY 07/05/25 07/05/25 History release hydrocodone 5 mg-acetaminophen 325 1 tab PO .Q4-6 PRN Severe Pain 07/05/25 07/05/25 History mg tablet (Scale Score 7-10) Past Med/Surg History Problem List Right trigger finger Mitral regurgitation Acute congestive heart failure Pulmonary edema Cardiomegaly (Acute) New onset atrial fibrillation Hypokalemia Atrial fibrillation with RVR (Acute) Left trigger finger Arthritis of left hand Carpal tunnel syndrome, right Cervical radiculopathy Left carpal tunnel syndrome Effusion, left knee 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 Hypertension Chronic rhinitis (Acute) Dyslipidemia (Acute) History of squamous cell carcinoma in situ of skin (Acute) Obstructive sleep apnea (Acute) Osteopenia (Acute) Medical History Osteopenia Hx of pulmonary edema Obstructive sleep apnea History of melanoma History of squamous cell carcinoma Dyslipidemia History of CHF (congestive heart failure) Mitral regurgitation Hypertension Cardiomegaly Atrial fibrillation with RVR Surgical History History of melanoma excision History of squamous cell carcinoma excision History of rectal polypectomy Status post trigger finger release History of neck surgery History of colonoscopy History of section History of cataract surgery History of carpal tunnel surgery Family History Aunt Breast cancer Mother Colorectal cancer Hypertension Denies family history of Ovarian cancer Stroke Asthma Social History Smoking Status: Never smoker Second Hand Exposure: No; Do You Dip or Chew Tobacco: No; Hx Alcohol Use: Yes Alcohol type: wine Hx Substance Use: No Preferred Language: German Communication Ability: Effective Tester [employer] Pack[employer] Required: No Beliefs That Will Affect Care: None marital status: Current Living Situation: Spouse current occupational status: retired Feels Safe at Home: Yes Childhood Exposure to Second-Hand Smoke: No Assistive Devices: CPAP and Glasses Physical Exam Physical Exam: General: A&Ox3. NAD. Cooperative. HEENT: Atraumatic, normocephalic. Vision and hearing grossly intact Pulm: CTAB A&P. -wheezes, -rales, -rhonchi. Symmetrical chest rise. No increased work of breathing. No respiratory distress. Cardiac: RRR, -mrg. Radial pulses intact and symmetrical. Abdominal: Nontender, nondistended, soft. BS present. Extremities: Right handWith surgical site overlying third MCP intact, no dehiscence. Slight pinkness without sharp demarcation. No purulent discharge. No fluctuance. Minimally tender to palpation. She has limited range of motion postoperatively at baseline however active flexion/extension within tolerable range of motion is without increased pain. Sensation is intact in the fingertips. Results & Data Results & Data Vital Signs (Past 12 Hours) Vital Signs Temp Pulse Resp BP Pulse Ox O2 Del Method 07/05/25 18:24 64 23 130/60 97 Room Air 07/05/25 17:51 59 L 18 124/81 95 07/05/25 17:24 56 L 19 120/54 L 96 07/05/25 16:51 59 L 19 123/63 95 07/05/25 15:57 93 H 26 H 123/62 94 07/05/25 15:57 58 L 07/05/25 15:32 61 15 95 Room Air 07/05/25 14:37 36.4 C L 64 18 140/66 99 Room Air PG Care Time/CCT Total # of Minutes Spent Total Time Spent with Patient: Total time spent is greater than 50% in coordination of care (as documented) at patient's floor/unit and/or counseling patient: Coding Level of Care Code 39914 INT INP/OBS CARE 3/75MIN Diagnoses Right trigger finger M65.30 Atrial fibrillation with RVR I48.91 Obstructive sleep apnea G47.33 Hypertension I10 History of CHF (congestive heart failure) Z86.79
[2025-07-05] MEDS ORDERED: POLYETHYLENE (MIRALAX) 17 GM PACK PO PRN (22:38)
[2025-07-05] MEDS ORDERED: ACETAMINOPHEN 325 MG TAB PO PRN (22:38)
[2025-07-05] MEDS ORDERED: ONDANSETRON INJ 2 MG/ML 2 ML VIAL IV PRN (22:38)
[2025-07-05 23:40] LABS: Hematocrit (blood only) 39.2 % (37.0-47.0); Hemoglobin 13.4 g/dl (12.0-16.0); Immature Granulocytes # (auto) 0.08 K/uL (0.01-0.20); Immature Granulocytes % (auto) 0.6 %; Mean Corpuscular Hemoglobin 31.3 pg (25.0-34.0); Mean Corpuscular Volume 91.6 fL (80.0-100.0); Platelet Count 252 K/uL (130-400); RDW Standard Deviation 42.3 fL (36.4-46.3); Red Blood Count 4.28 M/uL (4.20-5.40); White Blood Count 12.64 K/ul (4.8-10.8)
[2025-07-06 00:12] LABS: INR 1.1 (0.9-1.1); Partial Thromboplastin Time 28 Seconds (21-31); Prothrombin Time 11.2 Seconds (9.0-12.0)
[2025-07-06] MEDS: LOSARTAN POTASSIUM 50 MG TAB PO SCH (00:20)
[2025-07-06] MEDS: CEROVITE ADV FORMULA TAB PO SCH (00:20)
[2025-07-06] MEDS: HEPARIN 25000 UNIT/500 ML D5W 25,000 UNITS/500 ML BAG IV SCH (00:24)
[2025-07-06] MEDS: Heparin IV Adult Wt-Based Low-Dose *NO* INITIAL Bolus Protocol IV STA (00:31)
[2025-07-06 07:06] LABS: Hematocrit (blood only) 37.8 % (37.0-47.0); Hemoglobin 12.9 g/dl (12.0-16.0); Immature Granulocytes # (auto) 0.05 K/uL (0.01-0.20); Immature Granulocytes % (auto) 0.5 %; Mean Corpuscular Hemoglobin 31.4 pg (25.0-34.0); Mean Corpuscular Volume 92.0 fL (80.0-100.0); Platelet Count 232 K/uL (130-400); RDW Standard Deviation 43.0 fL (36.4-46.3); Red Blood Count 4.11 M/uL (4.20-5.40); White Blood Count 9.43 K/ul (4.8-10.8)
[2025-07-06 07:22] LABS: Anion Gap 7 (3-11); Blood Urea Nitrogen 10 mg/dl (6-23); Calcium 9.0 mg/dl (8.6-10.3); Carbon Dioxide 25 mmol/L (21-32); Chloride 102 mmol/L (98-107); Creatinine Clr Calc Pharmacy 57.3 ml/min; Glucose 102 mg/dl (70-99(Fasting)); Potassium 3.9 mmol/L (3.5-5.1); Sodium 134 mmol/L (136-145)
[2025-07-06 07:38] LABS: ANTI-Xa, UFH(UnfractionatedHep 0.62 IU/ml (0.3-0.7)
[2025-07-06 07:43] VITALS: RESP 16
[2025-07-06] MEDS: SPIRONOLACTONE 25 MG TAB PO SCH (09:26)
[2025-07-06] MEDS: METOPROLOL SUCC 50MG EXT REL TAB PO SCH (09:26)
--- NOTE | 2025-07-06 11:40 | Hospitalist Progress Note ---
Date of Service July 06, 2025 Assessment & Plan (1) Right trigger finger: Plan: Suspected right hand cellulitis S/p surgical intervention to her right third digit due to trigger finger on January 23 and June 21, last with Dr. Huerta. Some persistent pinkness/erythema of the right MCP at surgical site, slightly improved towards the palm but slightly worse distally into the finger on 07/06. no obvious purulence/discharge/fluctuance. Does have some increased swelling and tenderness on 07/06 compared to 07/05 most prominent at the third DIP/PIP Treated with Rocephin. CRP is not elevated, white count normalized on Rocephin. Will continue this Due to her increased swelling some discomfort at the MCP and pinkness and discomfort which is not resolved following antibiotics, and we some discomfort active flexion feel additional imaging is warranted. Discussed with SEPIDEH STANFORD, in agreement to rule out underlying abscess or infection. MRI right hand pending Afebrile, nontoxic at the bedside No respiratory, GI, or urinary infectious symptoms on admission A-fib, paroxysmal; history of CHF; hypertension Eliquis temporarily held and transition to heparin in case of any worsening at her surgical site requiring intervention. If doing well and progressing can transition back to Eliquis on discharge No chest pain/anginal symptoms Continue diltiazem, candesartan, spironolactone, metoprolol Last echo EF 50 to 55%, LVSF low normal, normal wall motion Ambulatory dysfunction She does endorse some weakness compared to her baseline, although feels she is able to ambulate carefully to the bathroom does have some worry about her stre ngth and also was not able to assist herself with her right hand is readily due to her surgery and recovery PT/OT ordered DVT prophylaxis: Anticoagulated Diet: Heart healthy Disposition: MSO. Will evaluate for underlying infection with MRI. If no abscess/deeper space infection is seen given change in coloration, swelling and some erythema most of the recovery do feel she would benefit from additional day of IV antibiotics in addition to PT/OT evaluations prior to consideration of transition to oral antibiotics. If no deep infection is seen would at least treat with a 5-day course (2) Atrial fibrillation with RVR: (3) Obstructive sleep apnea: (4) Hypertension: (5) History of CHF (congestive heart failure): Admission and Anticipated Discharge Date Admission Date: July 05, 2025 Subjective Seen the bedside. No fevers chills or sweats overnight. Her third digit does feel little more swollen and remains very tender at the MCP. No drainage/bleeding/oozing from the site. She reports she does feel little more weak and tired than normal and has some c oncern for her strength, especially since she has limited use of her right hand due to her surgery to support her.. She reports her right forearm is not red swollen or tender but feels a little tired/sore from holding her arm up in the weighted brace. Nontender to palpation Physical Exam Physical Exam: General: A&Ox3. NAD. Cooperative. HEENT: Atraumatic, normocephalic. Vision and hearing grossly intact Pulm: CTAB A&P. -wheezes, -rales, -rhonchi. Symmetrical chest rise. No increased work of breathing. No respiratory distress. Cardiac: RRR, -mrg. Radial pulses intact and symmetrical. Abdominal: Nontender, nondistended, soft. BS present. Extremities: Right hand with surgical site overlying third MCP intact, no dehiscence. Slight pinkness without sharp demarcation. [place] coloration remains similar to day prior, slightly improved at the palmar aspect but slightly more pink towards the third digit. swelling through the third digit appears more tense and she is very tender to palpation overlying the MCP this morning. no purulent discharge. She reports that her finger feels better with the elastic jesu in place however active finger flexion does give her some pain in her MCP and feels tight to the third digit. Radial pulse intact. Forearm incisions C/D/I without erythema warmth tenderness or fluctuance Results & Data Results & Data Vital Signs (Past 12 Hours) Vital Signs Temp Pulse Pulse Resp BP Pulse Ox O2 Del Method 07/06/25 09:24 72 07/06/25 07:00 36.7 C 61 16 157/76 H 94 Room Air 07/06/25 02:45 64 22 98 PG Care Time/CCT Total # of Minutes Spent Total Time Spent with Patient: Total time spent is greater than 50% in coordination of care (as documented) at patient's floor/unit and/or counseling patient: Coding Level of Care Code 37038 SUB INP/OBS CARE 3/50MIN Diagnoses Right trigger finger M65.30 Atrial fibrillation with RVR I48.91 Obstructive sleep apnea G47.33 Hypertension I10 History of CHF (congestive heart failure) Z86.79
[2025-07-06] MEDS: GADOBUTROL 30ML VIAL IV ONE (12:43)
--- NOTE | 2025-07-06 13:36 | Magnetic Resonance Report ---
Clinical history: Cellulitis. Recent trigger finger surgery Technique: Multiple T1 and T2-weighted magnetic resonance images were obtained of the right hand before and after the administration of 7 cc of Gadavist intravenous gadolinium contrast Findings: No fracture is identified. There is no subluxation or dislocation. 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 No focal osseous lesion is evident. There is no sign of osteomyelitis There is palmar displacement of the flexor tendons of the middle finger at the level of the proximal phalanx, suggestive of A1 jesu disruption. There is mild diffuse subcutaneous edema with enhancement of the middle finger. No definite abscess, hematoma, or other focal fluid collection is seen No foreign body is identified. No joint effusion is seen. No clear ligament tear is identified There is some thickening and edema of the median nerve within and outside of the carpal tunnel, concerning for neuritis Impression: 1. Palmar displacement of the flexor tendon of the middle finger at the level of the proximal phalanx, which may be due to the known recent surgery 2. Subcutaneous edema of the middle finger with enhancement, which may be due to cellulitis. 3. No definite abscess or osteomyelitis 4. Suspected neuritis of the median nerve 5. Mild osteoarthritis ACT 112: Positive. There are findings on this exam that require communication between the performing entity and the patient following Patient Test Result Information Act ([place] ACT 112) guidelines. Electronically signed by Torito Araujo 07-06-2025 13:35 PM
[2025-07-06] MEDS: cefTRIAXone SODIUM 2,000 MG/50 ML BAG IV SCH (19:34)
[2025-07-06] MEDS: APIXABAN 5 MG TABLET PO SCH (20:46)
[2025-07-07 06:43] LABS: Hematocrit (blood only) 36.0 % (37.0-47.0); Hemoglobin 12.6 g/dl (12.0-16.0); Immature Granulocytes # (auto) 0.06 K/uL (0.01-0.20); Immature Granulocytes % (auto) 0.7 %; Mean Corpuscular Hemoglobin 32.0 pg (25.0-34.0); Mean Corpuscular Volume 91.4 fL (80.0-100.0); Platelet Count 198 K/uL (130-400); RDW Standard Deviation 41.1 fL (36.4-46.3); Red Blood Count 3.94 M/uL (4.20-5.40); White Blood Count 8.27 K/ul (4.8-10.8)
[2025-07-07 06:55] LABS: Anion Gap 6.0 (3-11); Blood Urea Nitrogen 7.0 mg/dl (6-23); Calcium 9.0 mg/dl (8.6-10.3); Carbon Dioxide 27.0 mmol/L (21-32); Chloride 99.0 mmol/L (98-107); Creatinine Clr Calc Pharmacy 58.1 ml/min; Glucose 101.0 mg/dl (70-99(Fasting)); Potassium 4.0 mmol/L (3.5-5.1); Sodium 132.0 mmol/L (136-145)
[2025-07-07 07:01] LABS: ANTI-Xa, UFH(UnfractionatedHep 0.55 IU/ml (0.3-0.7)
--- NOTE | 2025-07-07 07:10 | Electrocardiogram Report ---
Test Reason : Blood Pressure : */* mmHG Vent. Rate : 59 BPM Atrial Rate : 59 BPM P-R Int : 154 ms QRS Dur : 86 ms QT Int : 450 ms P-R-T Axes : -15 -14 -14 degrees QTcB Int : 445 ms Sinus bradycardia Low voltage QRS Possible Inferior infarct , age undetermined Abnormal ECG When compared with ECG of 03-Jan-2024 13:27, Sinus bradycardia has replaced Atrial fibrillation Vent. rate has decreased by 91 bpm Confirmed by Jem Mathews ([id number]) on 07/07/2025 7:10:24 AM Referred By: Indio Leroy Confirmed By: Jem Mathews
--- NOTE | 2025-07-07 08:00 | Discharge Summary ---
Discharge Summary Date of Service July 07, 2025 Principal Dx & Hospital Course #1 = Principal Diagnosis (1) Right trigger finger: To do as outpatient: 1. Complete a 10-day course of antibiotic therapy for cellulitis at prior surgical site without evidence of osteomyelitis/abscess. Complete course with cefpodoxime 200 mg by mouth twice daily. 2. Follow-up with [facility] orthopedics within approximately 1 week. Suspected right hand cellulitis S/p surgical intervention to her right third digit due to trigger finger on January 23 and June 21, last with Dr. Huerta. Some persistent pinkness/erythema of the right MCP at surgical site, slightly improved towards the palm but slightly worse distally into the finger on 07/06. no obvious purulence/discharge/fluctuance. Does have some increased swelling and tenderness on 07/06 compared to 07/05 most prominent at the third DIP/PIP Treated with Rocephin. CRP is not elevated, white count normalized on Rocephin. Will continue this Due to her increased swelling some discomfort at the MCP and pinkness and discomfort which is not resolved following antibiotics, and we some discomfort active flexion feel additional imaging is warranted. Discussed with [facility], in agreement to rule out underlying abscess or infection. MRI right hand shows evidence of cellulitis; there was no evidence of osteomyelitis abscess or deep space infection.Median nerve neuritis was suspected. Pommel displacement of the flexor tendon of the middle finger likely due to known recent surgery was noted. Afebrile, nontoxic at the bedside No respiratory, GI, or urinary infectious symptoms on admission Clinically well, erythema improved and her leukocytosis resolved she was discharged outpatient follow-up A-fib, paroxysmal; history of CHF; hypertension Eliquis temporarily held and transition to heparin in case of any worsening at her surgical site requiring intervention. If doing well and progressing can transition back to Eliquis on discharge No chest pain/anginal symptoms Continue diltiazem, candesartan, spironolactone, metoprolol Last echo EF 50 to 55%, LVSF low normal, normal wall motion Ambulatory dysfunction Day of discharge she was walking and ambulating independently in the champagne with good strength and her , preferred discharge home. (2) Atrial fibrillation with RVR: (3) Obstructive sleep apnea: (4) Hypertension: (5) History of CHF (congestive heart failure): Admission HPI Per Admitting Provider Shira is seen with her at bedside. She reports that she had an episode last night and this morning where she suddenly had a shaking episode and felt off. She does not think she had a fever, she did not feel lightheaded or dizzy, did not have chest pain but felt not right and very shaky. She did not lose consciousness nor did she pass out. She has noted that at her right hand surgical site at the base of the middle finger there is a little bit of pinkness/redness which has just felt over the last 24-48 hours. She had a small amount of blood discharge from the base of the wound, but no purulent material. She has been doing physical therapy with active and passive exercises, most of her active range of motion remains limited however she has not noticed any change in pain. She has had no chest pain or chest pressure. No shortness of breath. No dysuria. No abdominal pain. At time bedside assessment she reports that her hand feels similar and is not more painful than normal, the only thing she notices abnormal is the pinkness and she does not currently feel sick. She felt a little bit nauseous but has not vomited. No change in sensation over the hand Medical History: Reviewed Medications: Reviewed Surgical History: Reviewed Family history: Reviewed Allergies: Reviewed Social History: No tobacco/etoh Code Status: Full Discharge Exam General: A&Ox3. NAD. Cooperative. HEENT: Atraumatic, normocephalic. Vision and hearing grossly intact Pulm: CTAB A&P. -wheezes, -rales, -rhonchi. Symmetrical chest rise. No increased work of breathing. No respiratory distress. Cardiac: RRR, -mrg. Radial pulses intact and symmetrical. Abdominal: Nontender, nondistended, soft. BS present. Extremities: Right hand with surgical site overlying third MCP intact, no dehiscence. Slight pinkness without sharp demarcation. Coloration improved, pinkish tone has resolved and still has some slight swelling at the third digit. No purulent discharge. Forearm incisions C/D/I without erythema warmth tenderness or fluctuance Discharge Plan Discharge Items Patient Disposition: Home - Self-Care Reason For Visit: RIGORS, ?R HAND CELLULITIS Discharge Diagnosis: Right hand cellulitis Condition on Discharge: Fair Activity: Resume your previous activity Non-emergency contact: Primary Care Provider and Surgeon Call non-emergency contact if: you have any medication questions, your symptoms worsen, your pain is not controlled and your pain is worsening Follow-up/Referrals: Indio Leroy [Primary Care Provider] - Checo Little MD [Physician] - (On 07/09 or 07/10) Diet: Regular Addtl Attending Provider Instructions: You are seen in the hospital after having shaking concerning for infectious rigors. You had an elevated white blood cell count, and some pinkness around your right third finger which is healing after right hand surgery. Your white blood cell count returned to normal after treatment with antibiotics. A MRI of your right hand showed subcutaneous edema of the middle finger consistent with cellulitis, but no abscess or deeper infection was seen. There was no evidence of bony infection (osteomyelitis). You are treated with an IV antibiotic during admission called ceftriaxone, clinically improved, and were discharged to complete 8 additional days of an antibiotic called cefpodoxime. Please take cefpodoxime 200 mg by mouth twice daily with food. Please take your first dose of cefpodoxime the evening of 07/07/2025. You should be seen within approximately 1 week by your orthopedic surgeon for reevaluation. A appointment has been requested for the following Tuesday/Tuesday, you should receive a call on Tuesday to confirm an appointment. A navigator is assisting with the scheduling, if you do not receive a call by Tuesday afternoon please contact the [facility] orthopedic office directly for further information. If you develop any new or worsening symptoms including fever, chills, sweats, chest pain, chest pressure, difficulty breathing, uncontrolled nausea/vomiting, rash, wheezing, passing out or nearly passing out, bleeding, black/bloody bowel movements, or other new or concerning symptoms please call your primary care physician, or call 911 for re-evaluation in the emergency department if you are very concerned. Pending Studies at Discharge: No Stand-Alone Forms: My [employer], Smoking Cessation Medications and DC Order Prescriptions: New cefpodoxime 200 mg tablet 200 mg PO BID 8 Days Qty: 16 0RF Rx Instructions: must administer with a meal/food Continued mecobalamin (vitamin B12) 1,000 mcg tablet,disintegrating 1,000 mcg sublingual DAILY Patient Comments: 07/05- otc unable to verify spironolactone [Aldactone] 25 mg tablet 25 mg PO QAM candesartan [Atacand] 16 mg tablet 16 mg PO HS cholecalciferol (vitamin D3) [Vitamin D3] 50 mcg (2,000 unit) Tablet 50 mcg PO DAILY Patient Comments: 07/05- otc unable to verify PreserVision AREDS-2 250-90-40-1 mg Capsule 1 tab PO BID Patient Comments: 07/05- otc unable to verify Eliquis 5 mg Tablet 5 mg PO BID Qty: 60 2RF metoprolol succinate 200 mg Tablet Extended Release 24 Hr 100 mg PO QAM diltiazem HCl 180 mg capsule,extended release 24hr 180 mg PO QAM hydrocodone-acetaminophen 5-325 mg tablet 1 tab PO .Q4-6 PRN (Reason: Severe Pain (Scale Score 7-10)) duloxetine 30 mg capsule,delayed release(DR/EC) 30 mg PO DAILY Discharge Orders: Discharge Order (Routine); Ordered 07/07/25 Ordered By: Adan Gore Admission Data Admit Date/Time: 07/05/25 18:50 Attending Provider: Adan Gore Admit Provider: Adan Gore Primary Care Provider: Indio Leroy Other Providers: Adan Gore Hospital Stay Data Consultations 07/05/25 17:56 ED Decision to Admit Stat 07/06/25 16:10 Consult [facility] manager math Routine Diagnostic Imagining Performed 07/05/25 14:37 CT head/brain wo con Stat 07/06/25 11:01 MR hand RT wo/w con Stat Pending Results Patient Have Any Pending Studies at Discharge: No Discharge Instructions Given to Patient (Per Discharging Provider) You are seen in the hospital after having shaking concerning for infectious rigors. You had an elevated white blood cell count, and some pinkness around your right third finger which is healing after right hand surgery. Your white blood cell count returned to normal after treatment with antibiotics. A MRI of your right hand showed subcutaneous edema of the middle finger consistent with cellulitis, but no abscess or deeper infection was seen. There was no evidence of bony infection (osteomyelitis). You are treated with an IV antibiotic during admission called ceftriaxone, cl inically improved, and were discharged to complete 8 additional days of an antibiotic called cefpodoxime. Please take cefpodoxime 200 mg by mouth twice daily with food. Please take your first dose of cefpodoxime the evening of 07/07/2025. You should be seen within approximately 1 week by your orthopedic surgeon for reevaluation. A appointment has been requested for the following Tuesday/, you should receive a call on Tuesday to confirm an appointment. A navigator is assisting with the scheduling, if you do not receive a call by Tuesday please contact the [facility] orthopedic office directly for further information. If you develop any new or worsening symptoms including fever, chills, sweats, chest pain, chest pressure, difficulty breathing, uncontrolled nausea/vomiting, rash, wheezing, passing out or nearly passing out, bleeding, black/bloody bowel movements, or other new or concerning symptoms please call your primary care physician, or call 911 for re-evaluation in the emergency department if you are very concerned. Total Time Total Time Spent Total Time Spent (In Minutes): Time spend day of discharge 35 minutes including direct patient care, documentation, review of labs and images, and coordination of care. Coding Level of Care Code 69024 INP/OBS DISCH >30 MIN Diagnoses Right trigger finger M65.30 Atrial fibrillation with RVR I48.91 Obstructive sleep apnea G47.33 Hypertension I10 History of CHF (congestive heart failure) Z86.79
[2025-07-07 08:20] VITALS: BP 154/77; PULSE 68; TEMP 97.9; O2SAT 94
== END 2025-07-07 13:27 | disposition home or self-care (01) | DRG 558 ==
LOC: ED 14:20 → INTOOBSV 18:50 → 3N 18:50